=== PATIENT | female | born 1940 | race Caucasian/White ===

== ENCOUNTER → 2024-01-19 09:43 | Day surgery (SDC) | payer OTHER, SELFPAY ==
[2024-01-19 11:23] VITALS: BMI 22.3
[2024-01-19 11:52] LABS: INR 2.88; PT 30.6 Sec (11.4-14.6)
--- NOTE | 2024-01-19 12:08 | ITS.CL.CARDI ---
[employer] - Cardioversion
Cardioversion
Procedure Report:
Date of Procedure:
Procedure: Cardioversion
Indication: Symptomatic atrial flutter
Performing Physician: Salinas Augustin MD
Technique: The patient was brought to the holding area. Signed informed consent was obtained. A time out was called and performed. The patient was anesthetized by the anesthesia service. Anticoagulation status was reviewed and appropriate. R2 pads
were placed anteriorly and posteriorly. A 200 J synchronized biphasic shock restored normal sinus rhythm without significant bradycardia. There were no complications.
Conclusion: Uncomplicated cardioversion from atrial flutter to sinus rhythm.
Recommendation: Routine post cardioversion care. Continue fci anticoagulation.
== END ==
LOC: CATH 09:43
PROVIDERS: ATTENDING PHYSICIAN Internal Medicine Cardiovascular Disease; FAMILY PHYSICIAN Internal Medicine
DX: I48.92 Unspecified atrial flutter (principal); Z79.01 Long term (current) use of anticoagulants; I34.0 Nonrheumatic mitral (valve) insufficiency; I50.32 Chronic diastolic (congestive) heart failure; I11.0 Hypertensive heart disease with heart failure; D50.9 Iron deficiency anemia, unspecified; E87.1 Hypo-osmolality and hyponatremia; G40.909 Epilepsy, unspecified, not intractable, without status epilepticus
CPT/HCPCS: 85610; 92960; 93005

== ENCOUNTER → 2024-12-25 10:01 | Outpatient (REF) | payer OTHER, SELFPAY | LOC: HWRCS 10:01 | PROVIDERS: ATTENDING PHYSICIAN Thoracic Surgery (Cardiothoracic Vascular Surgery) | DX: Z98.890 Other specified postprocedural states (principal) | CPT/HCPCS: 93306 ==

== ENCOUNTER 2025-07-01 05:24 | Inpatient (IN) | payer OTHER, SELFPAY ==
[2025-07-01] VITALS (9 sets, daily range): BP systolic 153–195; BP diastolic 56–80
--- NOTE | 2025-07-01 02:47 | ED.GENMED ---
History of Present Illness
<Linda Omalley PA-C - Last Filed: 07/01/25 05:36>
General
Chief Complaint: Fall
Source: patient
Exam Limitations: none
Time Seen by Provider: 07/01/25 02:29
Nursing documentation reviewed up to this point in time: agreed with
History of Present Illness
History of Present Illness:
Note:
CHIEF COMPLAINT(S)
Lightheadedness and fall.
HISTORY OF PRESENT ILLNESS
The patient is a 85-year-old female with a history of open heart surgery for MVP repair, CAD, CHF, afib, presents to the ER today with concerns of left hip pain following a fall. She reports that the sensation of lightheadedness is not new and has
occurred intermittently over many years, describing it as 'normal' for her, especially when moving quickly or in certain positions. She felt lightheaded standing while walking to the bathroom, causing her to loose her balance leading to a fall on
her side, though she reports not hitting her head. The patient was unable to get up independently and an ambulance was called. She admits to feeling dry and dehydrated now.
She has a history of valve repair during open heart surgery and is on warfarin. She does not have a history of losing consciousness with these episodes. 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
symptoms. She denies associated liver pain, abdominal pain, shortness of breath, neck pain, ankle pain, knee pain. She denies any groin pain.
PAST MEDICAL AND SURGICAL HISTORY
- Open heart surgery with valve repair.
- History of hip replacement.
MEDICATIONS
- Warfarin.
- Aspirin.
REVIEW OF SYSTEMS
- Neurological: Lightheadedness, chronic in nature.
- Musculoskeletal: Recent fall, no report of immediate injury.
- Cardiovascular: History of valve repair, on anticoagulants.
- General: Reports feeling dry, indicating possible dehydration.
PHYSICAL EXAM
General: Alert, no acute distress.
Skin: Warm, dry.
Head: Normocephalic, atraumatic.
Neck: Supple, trachea midline.
Eye, Ears, Nose, Mouth and Throat: Oral mucosa moist.
Cardiovascular: Regular rate and rhythm, no murmur normal peripheral perfusion, No edema. No tenderness palpation of external chest wall, no, no signs of trauma.
Respiratory: No respiratory effort, no wheezes, rales, rhonchi. Respirations are non-labored.
Gastrointestinal: Abdomen nondistended. No tenderness to palpation
Back: Normal range of motion, Normal alignment. No midline spinal tenderness.
Musculoskeletal: Left hip externally rotate. Unable to range the left hip. Tenderness palpation of the left anterior hip. No tenderness about the left knee or left ankle. No visible bony deformity.
Neurological: Sensation intact. Cranial nerves II through XII intact. Alert and oriented to person, place, time, and situation, No focal neurological deficit observed.
Psychiatric: Cooperative, appropriate mood & affect.
PROBLEM LIST
Acute Problems:
- Lightheadedness
- Fall
Chronic Problems:
- History of open heart surgery with valve repair
- History of hip replacement
PLAN
- Obtain X-ray of hip and pelvis to rule out fracture.
- Obtain labs to assess potential causes of lightheadedness and to ensure no significant anemia or electrolyte imbalance.
- Initiate pain control with a small dose of morphine due to the patients anticoagulation status.
- Monitor hydration status and consider administering fluids.
- Consider additional cardiovascular evaluation to ensure stability due to history of valve surgery.
DIFFERENTIAL DIAGNOSIS
The Differential Diagnosis includes, in no particular order and is not limited to:
- Orthostatic hypotension
- Hip fracture
- Pelvic fracture
- Dehydration
- Vestibular dysfunction
- Anemia
- Cardiac arrhythmia
- Drug-induced dizziness (due to warfarin)
- Inner ear dysfunction
- Neurological event
- Syncope
- Post-prandial hypotension
ECG
Normal sinus rhythm, rate 63, no ischemic changes, unchanged from prior
LABS
Patient mildly anemic, improved from baseline
INR 2.32
Elevated BUN at 22
Mild transaminitis
CHART REVIEW
Reviewed cardioversion report from 01/19/2024
Reviewed discharge summary from 06/29/2022 patient seen for severe mitral valve regurg status post repair with neocordplasty
Reviewed catheter lab report from 05/26/2022 patient found to have no obstructive coronary disease but found to have mid LAD 40% stenosis and elevated right-sided and left-sided filling pressures with mild pulmonary hypertension and borderline low
cardiac output
MDM/disposition
85-year-old female presents the ER today with concerns of left hip pain following a fall. She reports that she was feeling lightheaded which caused her to feel off balance when she stood up from laying down. She did not lose consciousness or hit
her head. On physical exam, she is well-appearing in no acute distress. She is unable to move the left hip. She has tenderness to palpation anteriorly. No visible bony deformity. Left hip is externally rotated. X-ray reveals left femoral head
fracture. She has previously had a right hip replacement done with Dr. Gonzalez. Ortho on-call notified. Patient will require admission for further pain management and continued treatment. ED attending made aware. Patient referred for admission.
Past History
<Linda Omalley PA-C - Last Filed: 07/01/25 05:36>
Past History
ED Past Medical History: Arrthythmia, HTN and Other (siezure)
ED Past Surgical History: Gynecological, Orthopedic and Other (Hernia repair)
Social History
Tobacco: Non-smoker
Alcohol: None
Drug: None
Personal:
Living: with family
Phy Exam
<Linda Omalley PA-C - Last Filed: 07/01/25 05:36>
Physical Exam
Physical Exam:
see hpi
Course
<Linda Omalley PA-C - Last Filed: 07/01/25 05:36>
Orders/Labs/Results
Orders:
Orders
07/01/25 03:13
Electrocardiogram (*1) Urgent
Reason for Study: Vertigo / Dizzy
Morphine Sulfate 2 mg IV NOW STA
CR Hip - LT w/wo Pel 2-3 Vw* Urgent
Comment:
Reason For Exam: left anterior hip pain
Include a pelvis x-ray?: Yes
07/01/25 03:14
EKG- Treatment ONCE
07/01/25 03:23
Complete Blood Count/With Diff Urgent
Prothrombin Time Urgent
07/01/25 04:05
Comprehensive Metabolic Panel Urgent
Comment: REDRAW
07/01/25 04:19
Morphine Sulfate 4 mg IV NOW STA
Abnormal Lab Results
07/01/25 07/01/25
03:23 04:05
RBC 3.60 L 10^6/uL
(4.20-5.40)
Hgb 11.1 L g/dL
(12.0-16.0)
Hct 33.5 L %
(37.0-47.0)
Immature Gran % 0.6 H %
(0-0.5)
Lymphocytes % 18.5 L %
(20.5-51.1)
Monocytes % 9.5 H %
(1.7-9.3)
PT 25.5 H Sec
(11.4-14.6)
Carbon Dioxide 31 H mmol/L
(22-30)
BUN 22 H mg/dl
(7-17)
Glucose 116 H mg/dl
(70-99)
AST 60 H U/L
(14-36)
ALT 47 H U/L
(0-35)
Alkaline Phosphatase 144 H U/L
(38-126)
11/24/25 03:23
07/01/25 04:05
Vital Signs
Initial and Last Documented VS:
Initial Vital Signs
BP
195/78
07/01/25 02:24
Last Documented Vital Signs
Temp Pulse Resp BP Pulse Ox
98.3 F 64 15 182/70 99
07/01/25 02:28 07/01/25 04:45 07/01/25 04:45 07/01/25 03:00 07/01/25 04:45
<Joy Madera, DO - Last Filed: 07/01/25 04:39>
Orders/Labs/Results
Orders:
Orders
07/01/25 03:13
Electrocardiogram (*1) Urgent
Reason for Study: Vertigo / Dizzy
Morphine Sulfate 2 mg IV NOW STA
CR Hip - LT w/wo Pel 2-3 Vw* Urgent
Comment:
Reason For Exam: left anterior hip pain
Include a pelvis x-ray?: Yes
07/01/25 03:14
EKG- Treatment ONCE
07/01/25 03:23
Complete Blood Count/With Diff Urgent
Prothrombin Time Urgent
07/01/25 04:05
Comprehensive Metabolic Panel Urgent
Comment: REDRAW
07/01/25 04:19
Morphine Sulfate 4 mg IV NOW STA
Abnormal Lab Results
07/01/25 07/01/25
03:23 04:05
RBC 3.60 L 10^6/uL
(4.20-5.40)
Hgb 11.1 L g/dL
(12.0-16.0)
Hct 33.5 L %
(37.0-47.0)
Immature Gran % 0.6 H %
(0-0.5)
Lymphocytes % 18.5 L %
(20.5-51.1)
Monocytes % 9.5 H %
(1.7-9.3)
PT 25.5 H Sec
(11.4-14.6)
Carbon Dioxide 31 H mmol/L
(22-30)
BUN 22 H mg/dl
(7-17)
Glucose 116 H mg/dl
(70-99)
AST 60 H U/L
(14-36)
ALT 47 H U/L
(0-35)
Alkaline Phosphatase 144 H U/L
(38-126)
07/01/25 03:23
07/01/25 04:05
Vital Signs
Initial and Last Documented VS:
Initial Vital Signs
BP
195/78
07/01/25 02:24
Last Documented Vital Signs
Temp Pulse Resp BP Pulse Ox
98.3 F 64 15 182/70 99
07/01/25 02:28 07/01/25 04:45 07/01/25 04:45 07/01/25 03:00 07/01/25 04:45
<Linda Omalley PA-C - Last Filed: 07/01/25 05:36>
*Pulse Oximetry
SaO2: 92
Oxygen Mode of Delivery: Room air
Patient hypoxic: no
*Critical Care Note
Total Time (30-74mins, 75-104mins- exclusive of procedures): Not Applicable
ED Attending Note
<Linda Omalley PA-C - Last Filed: 07/01/25 05:36>
-
Portions of this chart may have been created with voice recognition software.� Occasional wrong word or��sound alike� substitutions may have occurred due to the inherent limitations of voice recognition software.
<Joy Madera DO - Last Filed: 07/01/25 04:39>
ED Attending Note
Patient seen and examined by attending physician: Yes
I performed a history and physical exam of patient and discussed management with resident, I reviewed resident's note and agree with documented findings and plan of care.: Yes
ED Attending Note:
This is a robinson 85-year-old woman who has history of PAF, mitral valve repair 2021, history of epilepsy as well as history of intermittent dizziness/lightheadedness most noted with standing. Due to history of PAF, chronically maintained on
Coumadin. Eliquis interferes with Dilantin and thus not an option. Tonight after getting up out of bed
She noted an element of lightheadedness/dizziness, lost her balance and fell. She presents with complaints of left hip pain.
She denies head injury nor loss of consciousness. She denies headache, no neck nor back pain. No weakness or numbness.
She has a prior history of right hip fracture repair.
85-year-old woman appears her stated age, bright and alert, pleasant, easily communicative and in no acute distress.
Exam notable for mild pain about the left hip. Significant pain about the left hip with attempted range of motion. Distal sensation, strength intact. Peripheral pulses are full and equal bilaterally.
No focal neurodeficits. Awake alert, oriented x 3. Has full recollection of events.
X-ray reveals basicervical left hip fracture.
Pain controlled with IV morphine.
INR therapeutic at 2.32.
Orthopedics has been notified. Awaiting acknowledgment.
Will admit to hospitalist service. To consider vitamin K but will await orthopedic and cardiology input.
Discharge Plan
Departure
Patient Disposition: Admit
Date of Disposition: 07/01/25
Time of Disposition: 04:13
Admit to: Med/Surg
Presentation/result/management discussed w/ accepting MD/DO: Hospitalist
Patient with high blood pressure during this ER visit?: Yes
Condition: Fair
Discharge Problem:
Closed fracture of neck of left femur, Episodic lightheadedness
Prescriptions:
No Action
phenobarbital 16.2 MG tablet
16.2 mg PO HS
phenytoin sodium extended [Dilantin Extended] 100 MG capsule
100 mg PO TID@0900,1800,2300
Patient Comments:
BRAND ONLY!
furosemide [Lasix] 40 mg tablet
40 mg PO BID
Vitamin D3 (with calcium carb) 200 mg (500 mg) -400 unit Tablet
500 tab PO DAILY
atorvastatin 40 mg tablet
40 mg PO QPM
thiamine HCl (vitamin B1) 100 mg tablet
100 mg PO DAILY
Rx Instructions:
Continue for 1 month and then stop
ascorbic acid (vitamin C) [Vitamin C] 500 mg tablet
500 mg PO DAILY
Rx Instructions:
Continue for 1 month and then stop
pantoprazole 40 mg tablet,delayed release (DR/EC)
40 mg PO DAILY
warfarin 5 mg tablet
6.5 mg PO DAILY
Patient Comments:
on hold per md
Rx Instructions:
Start on 06/29/22 at 6:00 PM. Goal INR 2.0-3.0
aspirin 81 mg tablet,chewable
81 mg PO DAILY
metoprolol tartrate 25 mg tablet
12.5 mg PO Q12
Referrals:
Nathaniel Sepulveda MD [Family Provider, Internal Medicine]
Discharge Date and Time
Print Language: KOSOVAN
[2025-07-01] MEDS: MORPHINE SULFATE 2 MG IV (03:24)
[2025-07-01 03:53] LABS: Hematocrit 33.5 % (37.0-47.0); Hemoglobin 11.1 g/dL (12.0-16.0); Mean Corp Hgb Conc. 33.1 g/dL (33.0-37.0); Mean Corpuscular Volume 93.1 fL (81.0-99.0); Nucleated Red Blood Cells % 0 %; Platelet Count 183 10^3/uL (130-400); Red Cell Dist. Width 12.7 % (11.5-14.5)
[2025-07-01 03:59] LABS: INR 2.32; PT 25.5 Sec (11.4-14.6)
--- NOTE | 2025-07-01 04:19 | HPS.HSE ---
Family Physician
-
Family Physician: Nathaniel Sepulveda
Chief Complaint
-
Fall
History of Present Illness
85-year-old female with past medical history significant for paroxysmal atrial fibrillation on anticoagulation with Coumadin, severe mitral regurgitation, status post mitral valve repair, hypertension, seizure disorder, history of CAD, pulmonary
hypertension, who presents to the emergency department following a fall from standing height.
Patient has a history of presyncopal episodes for many many years. She was standing today when she felt lightheaded and then fell. She denies striking her head. She did not lose consciousness entirely. She had no palpitations or chest pain.
After the fall she developed left-sided hip pain and was unable to ambulate.
In the emergency department she was afebrile she was hypertensive with a blood pressure of 180/70 and a pulse of 64 and she was satting 93% on room air. ECG shows a normal sinus rhythm rate of 73 with occasional PACs. No acute ST or T wave
changes. CBC was unremarked. INR was 2.3. Electrolytes BUN/creatinine pending.
Medical History
Past Medical History
Past Medical History: Reports Valvular Disease (Mitral regurgitation status post mitral and tricuspid valve repair (neochordplasty to P3 and a #32 mm annuloplasty band as well as tricuspid valve repair with a #30 mm annuloplasty band, bi-atrial Maze
using radiofrequency ablation and cryoablation plus left atrial appendage clip using a #40 mm )) and Other
Additional Past Medical History:
paroxysmal atrial fibrillation, seizure disorder, essential hypertension, anxiety
Past Surgical History: Reports Cardiac (Mitral valve repair) and Other
Social History
Tobacco: Non-smoker
Alcohol: None
Drug: None
Living: With Family
Family History
Family History: Not pertinent
Allergies / Home Medications
Allergies reflects when Allergies were last updated in [facility].
Home Medications with original date entered in [facility]
Allergy/Medication List:
Allergies
Allergy/AdvReac Type Severity Reaction Status Date / Time
azithromycin Allergy Unknown Verified 04/27/22 13:55
cefprozil [From Cefzil] Allergy Unknown Verified 04/27/22 13:55
Penicillins Allergy Unknown Verified 04/27/22 13:55
sulfamethoxazole Allergy Unknown Verified 04/27/22 13:55
[From Bactrim]
trimethoprim [From Bactrim] Allergy Unknown Verified 04/27/22 13:55
Home Medications
lisinopril 5 mg tablet 5 mg PO DAILY@2000 Blood pressure 03/16/17
phenobarbital 16.2 mg tablet 16.2 mg PO HS 03/16/17
phenytoin sodium extended 100 mg capsule (Dilantin Extended) 100 mg PO TID@0900,1800,2300 03/16/17
atenolol 100 mg tablet 100 mg PO HS 04/27/22
diazepam 2 mg tablet 2 mg PO HSPRN PRN sleep 04/27/22
nitrofurantoin monohydrate/macrocrystals 100 mg capsule 100 mg PO BID Infection 04/27/22
warfarin 5 mg tablet 5 mg PO SUMOWETHFRSA Blood clot prevention/tx 04/27/22
warfarin 5 mg tablet 7.5 mg PO TU Blood clot prevention/tx 04/27/22
Review of Systems
-
Constitutional: Reports No Symptoms
EENT: Reports No Symptoms
Respiratory: Reports No Symptoms
Cardiac: Reports No Symptoms
Abdomen/GI: Reports No Symptoms
: Reports No Symptoms
Musculoskeletal: Reports No Symptoms
Skin: Reports No Symptoms
Neurological: Reports No Symptoms
Endocrine: Reports No Symptoms
Hematologic/Lymphatic: Reports No Symptoms
Psych: Reports No Symptoms
Physical Exam
Vital Signs
Vital Signs
Temp Pulse Resp BP Pulse Ox
98.3 F 64 16 182/70 91
07/01/25 02:28 07/01/25 03:30 07/01/25 03:30 07/01/25 03:00 07/01/25 03:15
Physical Exam
General: Comfortable
HEENT: NormoCephalic, Moist mucous membranes and Atraumatic
Respiratory: Clear
Cardiac: S1/S2 and Regular Rhythm; No Murmur or Rub
GI: Soft, Non Tender, Non Distended and Normal Bowel Sounds; No Organomegaly
Rectal: Deferred by Provider
Genito-urinary: Deferred by me
Musculoskeletal: No Clubbing, No Cyanosis, No Edema and Other (Left leg externally rotated)
Skin: No Rash
Neuro: AO x 3 and Nonfocal/grossly intact
Hematologic/Lymphatic: No Lymphadenopathy
Psych: Calm
Laboratory Results
-
07/01/25 03:23
Laboratory Results
PT 25.5 Sec (11.4-14.6) H 07/01/25 03:23
INR 2.32 07/01/25 03:23
Total Bilirubin Cancelled 07/01/25 03:23
AST Cancelled 07/01/25 03:23
ALT Cancelled 07/01/25 03:23
Alkaline Phosphatase Cancelled 07/01/25 03:23
Data Reviewed
-
Diagnostic Radiology: Image Personally Visualized and interpreted
Medical Tests (Nuc Med, Echo, EKG etc): Image Personally Visualized and interpreted
Lab Data: Labs Reviewed by me
Old Records: Reviewed
Impression/Plan
-
IMPRESSION:
Patient is a 85-year-old female with past medical history significant for hypertension, hyperlipidemia, seizure disorder, atrial fibrillation on anticoagulation with Coumadin (patient is not on DOAC's due to interactions with antiepileptic drugs
phenytoin), history of mitral valve repair, hyperlipidemia, CKD presenting to the emergency department following episode of lightheadedness and fall without loss of consciousness and found to have a left femoral neck nondisplaced fracture.
PLAN:
Femoral fracture
- Admit to [facility]
- NPO for now, surgical timing is undetermined
-Pain control and antiemetics, tailored to patient's age and renal function.
- Urinary retention protocol
-PT consultation
-Consulted surgery and awaiting recommendations.
-Patient is pending a high risk bleeding procedure, recommend reversal w/ 2.5 mg of oral vitamin K now while holding Coumadin and follow repeat INR later today and in the morning
-Patient is at moderate risk for a low risk procedure with respect to cardiac outcomes. Screening ECG is nonischemic. Patient is not having any active cardiac issues. Benefit of surgery outweighs risk of cardiac outcome.
- family to contact is Devaughn Clemente regarding surgical plans
Seizure disorder -history of seizures has since 66 years ago and she has been chronically on Dilantin and phenobarbital. Her last seizure was in the remote past.
� Continue phenobarbital 16.2 mg at bedtime
� Continue Dilantin 100 mg 3 times daily,
Atrial fibrillation
- continue metoprolol
- holding coumadin
CHF - Euvolemic
- hold lasix 20mg while NPO
- check bnp
HTN
- continue her metoprolol
DVT PPX - holding coumadin for now
Code status - full code
[2025-07-01] MEDS: MORPHINE SULFATE 4 MG IV (04:23)
[2025-07-01 04:49] LABS: ALT (SGPT) 47 U/L (0-35); AST (SGOT) 60 U/L (14-36); Albumin 4.5 g/dl (3.5-5.0); Alkaline Phosphatase 144 U/L (38-126); Blood Urea Nitrogen 22 mg/dl (7-17); Calcium 9.2 mg/dl (8.4-10.2); Carbon Dioxide 31 mmol/L (22-30); Chloride 98 mmol/L (98-107); Estimated Creatinine Clearance 54 ml/min; Glucose 116 mg/dl (70-99); Potassium 4.1 mmol/L (3.5-5.1); Sodium 135 mmol/L (135-145); Total Protein 8.1 g/dl (6.3-8.2); eGFR > 60.00
--- NOTE | 2025-07-01 07:45 | CON.CAR ---
Addendum entered and electronically signed by Israel Mcgarry MD 07/01/25 12:02:
85-year-old woman admitted with left hip fracture following a fall associated with lightheadedness and dizziness. She can climb 2 flights of steps without difficulty.
PMH: Mitral valve repair, tricuspid valve repair, bilateral maze and left atrial appendage clip, PAF with history of cardioversions, seizure disorder,
Meds: Reviewed
Rest of history per [facility] as outlined below
179/80, pulse 69, respiratory rate 18, afebrile, frail, pleasant, external rotation left hip, head neck exam remarkable, lungs are clear, regular rate and rhythm without obvious murmurs JVD okay no carotid bruits abdomen benign extremities with
external rotation of left hip, neuro nonfocal
Hemoglobin 11.1, BUN and creatinine are 22 and 0.7 bicarb is 31, AST and ALT are 60 and 47
ECG sinus rhythm, PACs
Impression:
Intertrochanteric left hip fracture
History of mitral valve repair and tricuspid valve repair with bilateral maze and left atrial appendage clip
Paroxysmal atrial fibrillation maintained on warfarin
Seizure disorder
Other diagnoses as below per [facility]. Reviewed in detail and agreed, unless otherwise specified
Plan:
From a cardiac standpoint, she seems euvolemic and compensated, but atrial fibrillation or heart failure. She can proceed as planned with open reduction and internal fixation of left hip fracture at acceptable cardiac risk.Warfarin is currently on
hold, most recent INR is 2.32.
Other findings assessments and recommendations as below per [facility].
Original Note:
Consultation
Consultation Request
Date/Time Consultation Requested: 07/01/2025, 0640
Date/Time Consultation Performed: 07/01/2025, 0800
Requesting Provider: Dr. Giordano
Performing Provider: TATA Lunsford for Dr. Mcgarry
Reason for Consultation: preoperative cardiac risk assessment
Medical History
-
Chief Complaint: palpitations, LE edema
History of Present Illness:
Patient is an 85 yo F with PMH HTN, HLD, chronic heart failure preserved EF, mitral regurgitation s/p mitral valve repair, tricuspid valve repair, biatrial maze and GLORIA clip on 06/21/2022, atrial fibrillation status post multiple cardioversions last
January 2024 and has been in sinus rhythm since then (on warfarin, not on DOAC's due to interaction with antiepileptic drugs), seizure disorder, who presents to the ED 07/01/2025 after a fall. She had gotten up to go to the bathroom in the middle of
the night and was walking with her walker when she felt lightheaded and wobbly and fell. She had no loss of consciousness. She lives alone and has a medical alert bracelet which notified EMS and her family. She presented to the ED where she was
found to have left femoral neck nondisplaced fracture. She has been evaluated by orthopedic surgery and plan for surgery tomorrow as long as INR has drifted down to 1.5-1.6. INR was 2.32 on presentation 07/01 and warfarin on hold.
Patient reports she typically walks with a walker or cane. She will walk to the clubhouse at her facility and play cards or board games. She was able to walk up a flight of steps at her granddaughter's house yesterday. She has no chest pain or
shortness of breath. No palpitations or syncope. Does get positional lightheadedness and there has been consideration for adjusting medications due to this.
EKG: Normal sinus rhythm, nonspecific ST-T wave abnormality, PACs, QTc 458 ms
PMH:
Chronic HFpEF
atrial fibrillation, paroxysmal
s/p CAPRICE/CV 03/2022 w/ recurrent afib, sotalol loaded and repeat CV 04/2022
biatrial maze and GLORIA clip 06/21/2022 as part of MV and TV repair surgery
s/p CV 01/2024
Chronic OAC with warfarin
MR s/p MV repair, tricuspid valve repair, biatrial Maze and GLORIA clip 06/21/2022
HTN
HLD, diet controlled
Glaucoma
Seizure disorder�patient reports no seizure in 30 years
h/o UTIs
Sjogren's syndrome
Peripheral neuropathy
h/o positional vertigo
CAD, cath 05/2022 with nonobstructive CAD
Past Medical History
Past Medical History: Other (in HPI)
Past Surgical History: Gynecological (hysterectomy) and Other (Mitral valve repair, tricuspid valve repair, biatrial maze, GLORIA clip 06/21/2022)
Social History
Tobacco: Non-Smoker
Alcohol: None
Drug: None
Living: Alone
Employment: Retired
Family History
Family History: CAD, Cancer, Diabetes and Hypertension
Allergies / Home Medications
Allergy/AdvReac Type Severity Reaction Status Date / Time
azithromycin Allergy Unknown Verified 07/01/25 02:27
cefprozil (From Cefzil) Allergy FACIAL Verified 07/01/25 02:27
SWELLING
ciprofloxacin (From Cipro) Allergy Swelling Verified 07/01/25 02:27
Penicillins Allergy Swelling Verified 07/01/25 02:27
sulfamethoxazole (From Allergy FACIAL Verified 07/01/25 02:27
Bactrim) SWELLING
trimethoprim (From Bactrim) Allergy Unknown Verified 07/01/25 02:27
�Medication �Instructions �Recorded �Confirmed �Type
phenobarbital 16.2 mg tablet 16.2 mg PO HS Seizures 03/16/17 01/19/24 History
phenytoin sodium extended 100 mg 100 mg PO TID@0900,1800,2300 03/16/17 01/19/24 History
capsule (Dilantin Extended) Seizures
furosemide 40 mg tablet (Lasix) 40 mg PO BID Fluid 06/19/22 01/19/24 History
retention/Swelling
ascorbic acid (vitamin C) 500 mg 500 mg PO DAILY Supplement 01/19/24 01/19/24 History
tablet (Vitamin C)
aspirin 81 mg chewable tablet 81 mg PO DAILY blood thinner 01/19/24 01/19/24 History
atorvastatin 40 mg tablet 40 mg PO QPM cholesterol 01/19/24 01/19/24 History
calcium carbonate 200 mg calcium 500 tab PO DAILY Supplement 01/19/24 01/19/24 History
(500 mg)-vitamin D3 400 unit tablet
metoprolol tartrate 25 mg tablet 12.5 mg PO Q12 bp 01/19/24 01/19/24 History
pantoprazole 40 mg tablet,delayed 40 mg PO DAILY gi 01/19/24 01/19/24 History
release
thiamine HCl (vitamin B1) 100 mg 100 mg PO DAILY Supplement 01/19/24 01/19/24 History
tablet
warfarin 5 mg tablet 6.5 mg PO DAILY Blood clot 01/19/24 01/19/24 History
prevention/tx
Review of Systems
-
History Source: Patient
All other systems: Negative unless noted
Physical Exam
Vital Signs
Temp Pulse Resp BP Pulse Ox
98.3 F 67 12 167/61 100
07/01/25 02:28 07/01/25 07:15 07/01/25 07:15 07/01/25 07:00 07/01/25 07:15
Lab Results
07/01/25 03:23
07/01/25 04:05
GEN: No distress, awake, Ox3
HEENT: supple, anicteric, mmm
LUNGS: CTA, no wheezes/rales
CV: Reg, S1/S2, no murmur
ABD: soft, BS+, NT/ND
EXT: No edema
NEURO: Gross non-focal
SKIN: No rash
Impression / Plan
-
PCP: Dr. Nathaniel Sepulveda
Cardiology: Dr. Augustin
Impression:
Left femoral neck nondisplaced fracture
Paroxysmal atrial fibrillation
Positional lightheadedness
Chronic heart failure preserved EF
Status post mitral valve repair, tricuspid valve repair 06/2022
Chronic OAC with warfarin
HTN
HLD, diet controlled
Glaucoma
Seizure disorder
h/o UTIs
Sjogren's syndrome
Peripheral neuropathy
h/o positional vertigo
Echo 02/23/22: Mod to sev LA enlargement, low normal LV systolic function, MVP with at least mod MR, mild to mod TR
Echo 08/2023: LVEF 55 to 60%, mitral valve repair with peak/mean 7/3 mmHg, trace MR, tricuspid valve repair with trace TR, mean gradient 2 mmHg, PAP 22 mmHg
Echo 12/2024: EF 55 to 60%, status post mitral repair with mean gradient 2, mild MR, status post tricuspid valve repair with mean gradient 1 and trace TR, PA pressure 25 mmHg
Left heart cath/right heart cath 05/26/2022, left main: Luminal irregularities. LAD: 40% mid LAD stenosis. Ostial D1 80% stenosis small caliber vessel, EVIE-3 flow. Distal to apical LAD with 70% stenosis and small in caliber. Ramus, left
circumflex, and RCA with luminal irregularities.
Plan:
- 85-year-old female with HTN, HLD, chronic heart failure preserved EF, mitral regurgitation s/p mitral valve repair, tricuspid valve repair, biatrial maze and GLORIA clip on 06/21/2022, atrial fibrillation status post multiple cardioversions last January
2023 and has been in sinus rhythm since then (on warfarin, not on DOAC's due to interaction with antiepileptic drugs), seizure disorder, who presents to the ED 07/01/2025 after a fall in setting of positional lightheadedness after she got up to walk
to the bathroom in the middle of the night. She presented to the ED where she was found to have left femoral neck nondisplaced fracture. She has been evaluated by orthopedic surgery and plan for surgery tomorrow as long as INR has drifted down to
1.5-1.6. INR was 2.32 on presentation 07/01 and warfarin on hold.
-Echo 12/2024 with normal LV function and stable mitral and tricuspid valve status post repair in 2021
-No anginal symptoms at stable functional capacity
-EKG normal sinus rhythm with no ischemic changes
-Blood pressure currently elevated, could be due to pain
- Warfarin on hold, anticipate surgery once INR less than 1.5-1.6 per Ortho. Of note she is on warfarin rather than a DOAC due to interaction of seizure meds with DOAC's.
-On warfarin for history of paroxysmal atrial fibrillation, no known A-fib since January 2024. Does not need bridge therapy.
-She has history of heart failure preserved EF, Lasix on hold while n.p.o., she appears euvolemic on exam.
discussed with nursing
Data Reviewed
-
EKG: Tracing Personally Visualized and interpreted
Labs: Labs Reviewed by me
Old Records: Reviewed
--- NOTE | 2025-07-01 08:25 | CON.ORTHO ---
Addendum entered and electronically signed by Yobani Roger MD 07/01/25 18:36:
Patient seen and examined. Agree with below. INR this AM was 2.32. Patient tentatively scheduled for left hip hemiarthroplasty tomorrow pending INR. Indicated at 6:30 AM that reversal with vitamin K should start to be able to address hip
fracture sooner than later. Unsure if vitamin K reversal has been ordered. Nothing found in the chart. Have tiger texted medical providers involved with care to attempt to begin reversal. New INR sent to lab. Will follow. Discussed with the
patient and her son. Consent obtained for surgery when able.
Original Note:
Consultation
-
Date/Time Consultation Requested: Jul 02
Date/Time Consultation Performed: Jul 02
Requesting Provider: Juan
Performing Provider: Gm Roger
Reason for Consultation: LEFT hip fracture
Consultation - Orthopedics
History
History of Present Illness:
85-year-old female with PMH significant for paroxysmal atrial fibrillation on Coumadin (INR 2.88 in ER, down to 2.32 early this AM, repeat AM draw pending), severe mitral regurgitation, status post mitral valve repair, hypertension, seizure
disorder, history of CAD, pulmonary hypertension, who presents to the emergency department following a fall from standing height. Patient has a history of presyncopal episodes for many many years. She was standing today when she felt lightheaded
and then fell. She denies striking her head. She did not lose consciousness entirely. She had no palpitations or chest pain. After the fall she developed left-sided hip pain and was unable to ambulate. Xrays in the ED at [facility] reveal a left
femoral neck fracture therefore we will requested in consultation. she will be admitted to the hospitalist service. Dr. Giordano has also requested cardiology consult. She denies any previous issues or injuries to the left hip.
Past Medical History:
Valvular Disease (Mitral regurgitation status post mitral and tricuspid valve)
PAF on Coumadin
seizure disorder
essential hypertension
anxiety
Past Surgical History:
Mitral valve repair
Right hip hemiarthroplasty (2016)
Social History:
Tobacco: Non-smoker
Alcohol: None
Drug: None
Living: With Family
Family History:
Family History: Not pertinent
ROS:
12 point negative except for those mentioned in the HPI
Allergies / Home Medications
Allergy/AdvReac Type Severity Reaction Status Date / Time
azithromycin Allergy Unknown Verified 07/01/25 02:27
cefprozil (From Cefzil) Allergy FACIAL Verified 07/01/25 02:27
SWELLING
ciprofloxacin (From Cipro) Allergy Swelling Verified 07/01/25 02:27
Penicillins Allergy Swelling Verified 07/01/25 02:27
sulfamethoxazole (From Allergy FACIAL Verified 07/01/25 02:27
Bactrim) SWELLING
trimethoprim (From Bactrim) Allergy Unknown Verified 07/01/25 02:27
�Medication �Instructions �Recorded
phenobarbital 16.2 mg tablet 16.2 mg PO HS Seizures 03/16/17
phenytoin sodium extended 100 mg 100 mg PO TID@0900,1800,2300 03/16/17
capsule (Dilantin Extended) Seizures
furosemide 40 mg tablet (Lasix) 40 mg PO BID Fluid 06/19/22
retention/Swelling
ascorbic acid (vitamin C) 500 mg 500 mg PO DAILY Supplement 01/19/24
tablet (Vitamin C)
aspirin 81 mg chewable tablet 81 mg PO DAILY blood thinner 01/19/24
atorvastatin 40 mg tablet 40 mg PO QPM cholesterol 01/19/24
calcium carbonate 200 mg calcium 500 tab PO DAILY Supplement 01/19/24
(500 mg)-vitamin D3 400 unit tablet
metoprolol tartrate 25 mg tablet 12.5 mg PO Q12 bp 01/19/24
pantoprazole 40 mg tablet,delayed 40 mg PO DAILY gi 01/19/24
release
thiamine HCl (vitamin B1) 100 mg 100 mg PO DAILY Supplement 01/19/24
tablet
warfarin 5 mg tablet 6.5 mg PO DAILY Blood clot 01/19/24
prevention/tx
Vital Signs / Lab Results
Temp Pulse Resp BP Pulse Ox
99.6 F 69 18 179/80 91
07/01/25 07:50 07/01/25 07:50 07/01/25 07:50 07/01/25 07:50 07/01/25 07:50
07/01/25 03:23
07/01/25 04:05
Assessment / Plan
PE: Bedrest. LEFT hip skin intact. LLE slight short and ER. Generalized pain about the left hip. Some swelling noted. + logroll LLE. Deferred ROM due to known fracture. Knee nontender. Calf soft, nontender. DNVI LLE
Xrays: LEFT femoral neck fracture
Impression: TAYO
Plan:
at length bedside discussion with the patient yields her understanding to the nature of her left hip fracture and our proposed treatment recommendations. All nonoperative and operative management were discussed including the RBAs of each approach.
After accepting all the proposed risks of proceeding with surgery she has elected that option. She has been through hip fracture repair in the past, back in 2017, and did well. We briefly discussed the postop and rehab course, and will appreciate
CM with disposition. she understands there will be a period of time where we will recommend THPs (typically 6 weeks). Appreciate attending hospitalist, Dr. Giordano. Cardiology consult has also been placed. We will look to proceed, tentatively,
tomorrow with a LEFT hip hemiarthroplasty as surgeon and OR availability permits. surgical and blood consents have been signed. Operative site is been marked as the LEFT hip. She has been tentatively consented for Dr. Roger. She may have a diet
today with no planned surgery. INR still high at 2.32. Repeat coagulation studies pending. Appears as though there is a gentle reversal. To proceed with regional anesthesia we would like her INR around 1.5/1.6 typically, per anesthesia. orders
have been placed for tentative surgery tomorrow, including NPO and T&S. Orthopedic surgery to follow along for now
[2025-07-01] MEDS: DILANTIN 100 MG PO ×3 (08:38→22:49)
[2025-07-01] MEDS: LOPRESSOR 25 MG PO ×2 (08:39→19:32)
[2025-07-01] MEDS: TYLENOL 650 MG PO ×4 (08:39→19:32)
[2025-07-01] MEDS: PROTONIX IV 40 MG IV (08:40)
[2025-07-01] MEDS: NSS (PRESERVATIVE FREE) 10 ML IV (08:40)
[2025-07-01] MEDS: DILAUDID 0.25 MG IV ×3 (08:40→22:49)
--- NOTE | 2025-07-01 09:21 | W.PN.HOSP.TC ---
Today's Communication/Plan
-
.
Assessment / Plan
Assessment / Plan
Physical Exam
General: not in respiratory distress
HEENT: Normocephalic, atraumatic
Respiratory: Clear
Cardiac: S1/S2
GI: Soft, Non Tender, Non Distended and Normal Bowel Sounds
Musculoskeletal: No Clubbing, No Cyanosis, No Edema and Other (Left leg externally rotated)
Skin: No Rash
Neuro: AO x 3 and Nonfocal/grossly intact
Psych: Calm
# Left femoral neck fracture
c/w pain control
d/w ortho, will plan for surgery when INR is down
Likely 07/02
# Pre- op evaluation
No chest pain
She newell snot seem in CHF on exam
c/w BB
Primary program support assistant Dr Hyde
# S/ P mitral regurgitation s/p mitral valve repair, tricuspid valve repair, biatrial maze and GLORIA clip on 06/21/2022
# Mild elevation in LFT
Monitor
No abd pain
# chronic heart failure preserved EF
# Seizure disorder -history of seizures has since 66 years ago and she has been chronically on Dilantin and phenobarbital. Her last seizure was in the remote past.
� Continue phenobarbital 16.2 mg at bedtime
� Continue Dilantin 100 mg 3 times daily,
# Paroxysmal atrial fibrillation
- continue metoprolol
- holding Coumadin
# positional vertigo
# Sjogren's syndrome with Peripheral neuropathy
HTN
- continue her metoprolol
DVT PPX - holding coumadin for now
Code status - full code
Total time spent to see the patient, examine the patient, review data and lab results, discuss treatment plan with patient, nursing staff around 55 minutes�
Anticipated Discharge: > 48 hours
Subjective/Interval History
-
Date of Service: July 01, 2025
She complains of discomfort in hip area.
Objective Data
-
Labs:
Laboratory Results
07/01/25 07/01/25 07/01/25
03:23 04:05 18:00
WBC 6.2
Hgb 11.1 L
Hct 33.5 L
Plt Count 183
PT 25.5 H Pending
INR 2.32 Pending
Sodium Cancelled 135
Potassium Cancelled 4.1
Chloride Cancelled 98
Carbon Dioxide Cancelled 31 H
BUN Cancelled 22 H
Creatinine Cancelled 0.7
Glucose Cancelled 116 H
Calcium Cancelled 9.2
Total Bilirubin Cancelled 0.3
AST Cancelled 60 H
ALT Cancelled 47 H
Alkaline Phosphatase Cancelled 144 H
Vital Signs:
Vital Signs
Temp Pulse Resp BP Pulse Ox
99.6 F 69 18 179/80 91
07/01/25 07:50 07/01/25 07:50 07/01/25 07:50 07/01/25 07:50 07/01/25 07:50
--- NOTE | 2025-07-01 11:32 | CM ---
CM met with pt bedside
Pt resides alone in a rancher with 1 +threshold through front and 1STE with handrail through garage
Pt is independent with her ADLs with use of a WW, independent with household tasks
Pt does not drives, family assists with transport and errands
Pt has a shower chair and grabs bars
Pt has hx at [facility] and [facility]
PCP- Nathaniel Sepulveda
Rx- CAROLE Wade
Pt has strong family support
Pt has 5 children (Devaughn, Maria Isabel, and Marcos in [place], Israel/Dillon [place], Gil/JIGNA [place])
Pt has 18 grandchildren mostly local and 18 great-grandchildren
Pt planned for OR tomorrow for L. ernie hip
PAC provided and referrasl sent to 1). [facility]). [facility] and 3). [facility]
Pt will require auth for SNF and will benefit from postop PT/OT evals
Call to son/Devaughn with pt permission to introduce self and explain role
Discharge Disposition- anticipate SNF pending auth
[2025-07-01] MEDS: D5/0.9% SODIUM CHLORIDE 1000 IV (11:50)
[2025-07-01 19:19] LABS: INR 2.52; PT 27.2 Sec (11.4-14.6)
[2025-07-01] MEDS: AQUAMEPHYTON 50.5 MG IV (19:31)
[2025-07-01] MEDS: COLACE 100 MG PO (19:32)
[2025-07-01] MEDS: SENOKOT 17.2 MG PO (19:32)
[2025-07-01] MEDS: LUMINAL 16.2 MG PO (22:48)
[2025-07-02] VITALS (12 sets, daily range): BP systolic 122–165; BP diastolic 52–75; BMI 19.8
[2025-07-02] MEDS: TYLENOL PO ×4 (00:29→16:31)
[2025-07-02 07:23] LABS: Hematocrit 36.1 % (37.0-47.0); Hemoglobin 12.3 g/dL (12.0-16.0); Mean Corp Hgb Conc. 34.1 g/dL (33.0-37.0); Mean Corpuscular Volume 93.3 fL (81.0-99.0); Platelet Count 166 10^3/uL (130-400); Red Cell Dist. Width 12.6 % (11.5-14.5)
[2025-07-02 07:30] LABS: INR 1.26; PT 16.0 Sec (11.4-14.6)
--- NOTE | 2025-07-02 07:50 | W.PN.UPDATE ---
Update Note
Progress Note Update
85F left femoral neck fracture
- Pending OR for left hip hemiarthroplasty with Dr. Roger with goal INR less than 1.5; current INR with reversal 1.26 this a.m.
- Type and screen on file. Antibiotics on-call to or. Irrigation is ordered.
- Consent on file
- Plan 4 OR today for left hip hemiarthroplasty with Dr. Roger
[2025-07-02 08:16] LABS: Blood Urea Nitrogen 14 mg/dl (7-17); Calcium 9.2 mg/dl (8.4-10.2); Carbon Dioxide 28 mmol/L (22-30); Chloride 100 mmol/L (98-107); Estimated Creatinine Clearance 60 ml/min; Glucose 120 mg/dl (70-99); Potassium 4.0 mmol/L (3.5-5.1); Sodium 132 mmol/L (135-145); eGFR > 60.00
[2025-07-02] MEDS: PROTONIX IV 40 MG IV (08:24)
[2025-07-02] MEDS: NSS (PRESERVATIVE FREE) 10 ML IV (08:24)
[2025-07-02] MEDS: LOPRESSOR 25 MG PO ×2 (08:26→20:10)
[2025-07-02] MEDS: TYLENOL 650 MG PO ×3 (08:29→23:00)
[2025-07-02] MEDS: SENOKOT PO (08:30)
[2025-07-02] MEDS: COLACE PO (08:30)
[2025-07-02] MEDS: DILANTIN 100 MG PO (08:43)
--- NOTE | 2025-07-02 09:00 | PTCARENOTE ---
order noted for Dilantin (name broad only) PO TID. call placed to Pharmacy-medication non-formulary in name brand. pt made aware.
pt agreeable to take generic -Phenytoin- this am and ask family to provide home medication for further administrations. Phenytoin provided per OCT.
--- NOTE | 2025-07-02 09:50 | W.PN.CARDCBS ---
Today's Communication / Plan
-
Stable for operating room. Place on telemetry.
Follow for hx of Paroxysmal A-fib. Will continue metoprolol 25 p.o. every 12.
Will need to watch for orthostasis postoperatively.
INR below 1.5. Resume Coumadin post surgery.
Impression / Plan
-
PCP: Dr. Nathaniel Sepulveda
Cardiology: Dr. Augustin
Impression:
Left femoral neck nondisplaced fracture
Paroxysmal atrial fibrillation
Positional lightheadedness
Chronic heart failure preserved EF
Status post mitral valve repair, tricuspid valve repair 06/2022
Chronic OAC with warfarin
HTN
HLD, diet controlled
Glaucoma
Seizure disorder
h/o UTIs
Sjogren's syndrome
Peripheral neuropathy
h/o positional vertigo
Echo 02/23/22: Mod to sev LA enlargement, low normal LV systolic function, MVP with at least mod MR, mild to mod TR
Echo 08/2023: LVEF 55 to 60%, mitral valve repair with peak/mean 7/3 mmHg, trace MR, tricuspid valve repair with trace TR, mean gradient 2 mmHg, PAP 22 mmHg
Echo 12/2024: EF 55 to 60%, status post mitral repair with mean gradient 2, mild MR, status post tricuspid valve repair with mean gradient 1 and trace TR, PA pressure 25 mmHg
Left heart cath/right heart cath 05/26/2022, left main: Luminal irregularities. LAD: 40% mid LAD stenosis. Ostial D1 80% stenosis small caliber vessel, EVIE-3 flow. Distal to apical LAD with 70% stenosis and small in caliber. Ramus, left
circumflex, and RCA with luminal irregularities.
Plan:
- 85-year-old female with HTN, HLD, chronic heart failure preserved EF, mitral regurgitation s/p mitral valve repair, tricuspid valve repair, biatrial maze and GLORIA clip on 06/21/2022, atrial fibrillation status post multiple cardioversions last January
2023 and has been in sinus rhythm since then (on warfarin, not on DOAC's due to interaction with antiepileptic drugs), seizure disorder, who presents to the ED 07/01/2025 after a fall in setting of positional lightheadedness after she got up to walk
to the bathroom in the middle of the night. She presented to the ED where she was found to have left femoral neck nondisplaced fracture. She has been evaluated by orthopedic surgery and plan for surgery tomorrow as long as INR has drifted down to
1.5-1.6. INR was 2.32 on presentation 07/01 and warfarin on hold.
-Echo 12/2024 with normal LV function and stable mitral and tricuspid valve status post repair in 2021
-No anginal symptoms at stable functional capacity
-EKG normal sinus rhythm with no ischemic changes
-INR currently at 1.26. Okay for operating room today. Placed on telemetry pre and postoperatively to follow for A-fib.
-On warfarin for history of paroxysmal atrial fibrillation, no known A-fib since January 2024. Does not need bridge therapy.
-She has history of heart failure preserved EF, Lasix on hold while n.p.o., she appears euvolemic on exam.
- She did have some dizziness prior to her fall. Will need to watch for orthostasis postoperatively.
discussed with nursing
Progress Note - Perianesthesia Manager
Subjective
Date of Service: July 02, 2025
She denies chest pains or shortness of breath. No further dizziness.
Objective
Labs:
07/02/25 06:18
07/02/25 06:18
Labs
Hgb 12.3 g/dL (12.0-16.0) 07/02/25 06:18
Hct 36.1 % (37.0-47.0) L 07/02/25 06:18
Plt Count 166 10^3/uL (130-400) 07/02/25 06:18
PT 16.0 Sec (11.4-14.6) H 07/02/25 06:18
INR 1.26 07/02/25 06:18
Sodium 132 mmol/L (135-145) L 07/02/25 06:18
Potassium 4.0 mmol/L (3.5-5.1) 07/02/25 06:18
BUN 14 mg/dl (7-17) 07/02/25 06:18
Creatinine 0.6 mg/dL (0.6-1.0) 07/02/25 06:18
Glucose 120 mg/dl (70-99) H 07/02/25 06:18
Vital Signs and I&O:
Vital Signs
Temp Pulse Resp BP Pulse Ox
98.9 F 73 14 165/74 95
07/02/25 08:05 07/02/25 08:26 07/02/25 08:05 07/02/25 08:26 07/02/25 08:05
Vital Signs
Temp Pulse Resp BP Pulse Ox
98.9 F 73 14 165/74 95
07/02/25 08:05 07/02/25 08:26 07/02/25 08:05 07/02/25 08:26 07/02/25 08:05
Intake & Output
06/30/25 07/01/25 07/02/25 07/03/25
06:59 06:59 06:59 06:59
Intake Total 1450.5 / 1450.5
Output Total 650 / 650
Balance 800.5 / 800.5
Physical Exam
Physical Exam
GEN: No distress, awake, Ox3
HEENT: supple, anicteric, mmm
LUNGS: CTA, no wheezes/rales
CV: Reg, S1/S2, 1/6 syst LSB, no gallop
ABD: soft, BS+, NT/ND
EXT: No edema
NEURO: Gross non-focal
SKIN: No rash
--- NOTE | 2025-07-02 09:55 | W.PN.HOSP.TC ---
Today's Communication/Plan
-
surgery today
Assessment / Plan
Assessment / Plan
Physical Exam
General: not in respiratory distress
HEENT: Normocephalic, atraumatic
Respiratory: Clear
Cardiac: S1/S2
GI: Soft, Non Tender, Non Distended and Normal Bowel Sounds
Musculoskeletal: No Clubbing, No Cyanosis, No Edema and Other (Left leg externally rotated)
Skin: No Rash
Neuro: AO x 3 and Nonfocal/grossly intact
Psych: Calm
# Left femoral neck fracture
c/w pain control
d/w ortho, will plan for surgery 07/02
# Hyponatremia, mild
No confusion
# Pre- op evaluation
No chest pain
She newell snot seem in CHF on exam
c/w BB
Primary pharmacist in charge Dr Augustin
# S/ P mitral regurgitation s/p mitral valve repair, tricuspid valve repair, biatrial maze and GLORIA clip on 06/21/2022
# Mild elevation in LFT
Monitor
No abd pain
# chronic heart failure preserved EF
# Seizure disorder -history of seizures has since 66 years ago and she has been chronically on Dilantin and phenobarbital. Her last seizure was in the remote past.
� Continue phenobarbital 16.2 mg at bedtime
� Continue Dilantin 100 mg 3 times daily,
# Paroxysmal atrial fibrillation
- continue metoprolol
- holding Coumadin
s/p vitamin K for OR, d/w ortho, need INR less than 2
# positional vertigo
# Sjogren's syndrome with Peripheral neuropathy
HTN
- continue her metoprolol
DVT PPX - holding coumadin for now
Code status - full code
Total time spent to see the patient, examine the patient, review data and lab results, discuss treatment plan with patient, nursing staff around 55 minutes�
Anticipated Discharge: 24 - 48 hours
Subjective/Interval History
-
Date of Service: July 02, 2025
No chest pain
No sob
Objective Data
-
Labs:
Laboratory Results
07/02/25
06:18
WBC 10.1
Hgb 12.3
Hct 36.1 L
Plt Count 166
PT 16.0 H
INR 1.26
Sodium 132 L
Potassium 4.0
Chloride 100
Carbon Dioxide 28
BUN 14
Creatinine 0.6
Glucose 120 H
Calcium 9.2
Vital Signs:
Vital Signs
Temp Pulse Resp BP Pulse Ox
98.9 F 73 14 165/74 95
07/02/25 08:05 07/02/25 08:26 07/02/25 08:05 07/02/25 08:26 07/02/25 08:05
I&O
07/01/25 07/02/25 07/03/25
06:59 06:59 06:59
Intake Total 1450.5 / 1450.5
Output Total 650 / 650
Balance 800.5 / 800.5
[2025-07-02] MEDS: D5/0.9% SODIUM CHLORIDE IV (15:57)
--- NOTE | 2025-07-02 15:59 | PTCARENOTE ---
pt received back to 2117 from PACU @ 1550. drowsy but easily arousable. telemetry placed and reading SR in 60's. pt oriented to room, call ramirez and plan of care with verbalized understanding. family at bedside. Left Hip surgical dressing clean
and dry. pr denies pain. care ongoing.
--- NOTE | 2025-07-02 16:24 | PTCARENOTE ---
pt's own Dilantin sent to pharmacy for ID and bar code for administration.
[2025-07-02] MEDS: NON-FORMULARY ITEM 1 UNIT PO ×2 (18:24→22:55)
[2025-07-02] MEDS: REFRESH EYE DROPS (PF) 1 DROPS OPHTH (18:25)
[2025-07-02] MEDS: ANCEF 5 IV (20:10)
[2025-07-02] MEDS: COLACE 100 MG PO (20:10)
[2025-07-02] MEDS: SENOKOT 17.2 MG PO (20:10)
[2025-07-02] MEDS: LUMINAL 16.2 MG PO (22:38)
[2025-07-03] VITALS (7 sets, daily range): BP systolic 127–166; BP diastolic 53–66; PULSE 79–80; O2SAT 94; BMI 19.5
[2025-07-03] MEDS: REFRESH EYE DROPS (PF) 1 DROPS OPHTH ×2 (00:25→06:24)
[2025-07-03] MEDS: TYLENOL 650 MG PO ×2 (04:15→09:16)
[2025-07-03] MEDS: ANCEF 5 IV (04:15)
[2025-07-03] MEDS: ROXICODONE 5 MG PO ×2 (06:14→18:33)
[2025-07-03 07:12] LABS: Hematocrit 30.0 % (37.0-47.0); Hemoglobin 10.3 g/dL (12.0-16.0); Mean Corp Hgb Conc. 34.3 g/dL (33.0-37.0); Mean Corpuscular Volume 92.9 fL (81.0-99.0); Platelet Count 127 10^3/uL (130-400); Red Cell Dist. Width 12.6 % (11.5-14.5)
[2025-07-03 07:27] LABS: ALT (SGPT) 23 U/L (0-35); AST (SGOT) 37 U/L (14-36); Albumin 3.4 g/dl (3.5-5.0); Alkaline Phosphatase 93 U/L (38-126); Blood Urea Nitrogen 15 mg/dl (7-17); Calcium 8.5 mg/dl (8.4-10.2); Carbon Dioxide 27 mmol/L (22-30); Chloride 98 mmol/L (98-107); Estimated Creatinine Clearance 44 ml/min; Glucose 126 mg/dl (70-99); Potassium 3.8 mmol/L (3.5-5.1); Sodium 130 mmol/L (135-145); Total Protein 6.3 g/dl (6.3-8.2); eGFR > 60.00
--- NOTE | 2025-07-03 07:29 | W.PN.ORTHO ---
Today's Communication / Plan
-
85 yo F POD1 left hip hemiarthroplasty under the direction of Dr. Roger
--WBAT to LLE with walker. Anterolateral hip precautions. We appreciate the assistance of PT/OT.
--Warfarin for DVT ppx, to be managed per primary.
--Hgb 10.3. Continue to monitor.
--Pain control prn. Ice and elevation for edema control.
--Maintain surgical dressing for 7-10 days post-op. Staple removal at 2 weeks post-op.
--Case management consult for dc planning.
--Orthopedics will continue to follow along.
Assessment
.
Distal Motor Intact: Yes
Dressing:
Clean, dry and intact.
Plan
.
Surgery / Date: L hip ernie, [place], 07/02/2025
DVT Prophylaxis: Coumadin
Activity:
Out of bed.
PT/OT
Subjective
.
.:
Ms. East is POD1 following her left hip hemiarthroplasty performed by Dr. Roger. She does endorse some continued pain about the hip. She reports it was somewhat difficult to get up to use the restroom overnight. She is resting comfortably in bed
this morning.
Vital Signs and Labs
.
Vital Signs and Labs:
Lab Results
07/03/25 06:32
07/03/25 06:32
Temp Pulse Resp BP Pulse Ox
99.3 F 73 17 137/59 93
07/03/25 03:21 07/03/25 03:21 07/03/25 03:21 07/03/25 03:21 07/03/25 03:21
PT 16.0 Sec (11.4-14.6) H 07/02/25 06:18
INR 1.26 07/02/25 06:18
Physical Exam
-
Directed exam of the left lower extremity reveals surgical dressing clean, dry and intact. Mild tenderness about the anterior hip. Thigh soft and compressible. Calf soft and nontender. Patient able to wiggle toes, plantar and dorsiflex ankle.
Neurovascularly intact distally.
--- NOTE | 2025-07-03 09:13 | W.PN.CARDCBS ---
Today's Communication / Plan
-
Stable cardiac status
Restart atorvastatin, furosemide, potassium
Agree with initiation of warfarin
We will sign off, please call if questions
Impression / Plan
-
PCP: Dr. Nathaniel Sepulveda
Cardiology: Dr. Augustin
Impression:
Left femoral neck nondisplaced fracture
Paroxysmal atrial fibrillation
Positional lightheadedness
Chronic heart failure preserved EF
Status post mitral valve repair, tricuspid valve repair 06/2022
Chronic OAC with warfarin
HTN
HLD, diet controlled
Glaucoma
Seizure disorder
h/o UTIs
Sjogren's syndrome
Peripheral neuropathy
h/o positional vertigo
Echo 02/23/22: Mod to sev LA enlargement, low normal LV systolic function, MVP with at least mod MR, mild to mod TR
Echo 08/2023: LVEF 55 to 60%, mitral valve repair with peak/mean 7/3 mmHg, trace MR, tricuspid valve repair with trace TR, mean gradient 2 mmHg, PAP 22 mmHg
Echo 12/2024: EF 55 to 60%, status post mitral repair with mean gradient 2, mild MR, status post tricuspid valve repair with mean gradient 1 and trace TR, PA pressure 25 mmHg
Left heart cath/right heart cath 05/26/2022, left main: Luminal irregularities. LAD: 40% mid LAD stenosis. Ostial D1 80% stenosis small caliber vessel, EVIE-3 flow. Distal to apical LAD with 70% stenosis and small in caliber. Ramus, left
circumflex, and RCA with luminal irregularities.
Plan:
She appears stable from a cardiac standpoint postop day 1 status post left hip hemiarthroplasty.
She remains in sinus rhythm. Blood pressure is acceptable.
Agree with resumption of warfarin
Restart furosemide 40 mg a day and potassium 20 mEq daily in AM. Resume atorvastatin.
Discharge planning.
We will sign off, please call if needed.
Progress Note - Nursery Manager
Subjective
Date of Service: July 03, 2025:
85-year-old woman admitted with left hip fracture following a fall associated with lightheadedness and dizziness. She can climb 2 flights of steps without difficulty.
PMH: Mitral valve repair, tricuspid valve repair, bilateral maze and left atrial appendage clip, PAF with history of cardioversions, seizure disorder
Current medications: Metoprolol tartrate 25 mg every 12, phenobarbital, Colace, Senokot, acetaminophen, pantoprazole, furosemide 40 mg daily on hold, atorvastatin 40 mg daily on hold, aspirin 81 mg daily, Dilantin. Warfarin on hold, potassium on
hold, metoprolol tartrate is doubled
156/65, pulse 99, respiratory rate 18, sats are 95%, complaining of some incisional discomfort, head neck exam unremarkable, lungs are clear, regular rate and rhythm without obvious murmurs, abdomen benign extremities without significant edema
Hemoglobin 10.3, platelets 127, BUN and creatinine 15 and 0.8
Objective
Labs:
07/03/25 06:32
07/03/25 06:32
Labs
Hgb 10.3 g/dL (12.0-16.0) L 07/03/25 06:32
Hct 30.0 % (37.0-47.0) L 07/03/25 06:32
Plt Count 127 10^3/uL (130-400) L D 07/03/25 06:32
PT 16.0 Sec (11.4-14.6) H 07/02/25 06:18
INR 1.26 07/02/25 06:18
Sodium 130 mmol/L (135-145) L 07/03/25 06:32
Potassium 3.8 mmol/L (3.5-5.1) 07/03/25 06:32
BUN 15 mg/dl (7-17) 07/03/25 06:32
Creatinine 0.8 mg/dL (0.6-1.0) 07/03/25 06:32
Glucose 126 mg/dl (70-99) H 07/03/25 06:32
Vital Signs and I&O:
Vital Signs
Temp Pulse Resp BP Pulse Ox
37.1 C 70 17 136/56 96
07/03/25 07:37 07/03/25 07:37 07/03/25 07:37 07/03/25 07:37 07/03/25 07:37
Vital Signs
Temp Pulse Resp BP Pulse Ox
37.1 C 70 17 136/56 96
07/03/25 07:37 07/03/25 07:37 07/03/25 07:37 07/03/25 07:37 07/03/25 07:37
Intake & Output
07/01/25 07/02/25 07/03/25 07/04/25
07:59 07:59 07:59 07:59
Intake Total 1450.5 / 1450.5 200 / 200
Output Total 800 / 800 550 / 550
Balance 650.5 / 650.5 -350 / -350
Physical Exam
Physical Exam
See above
[2025-07-03] MEDS: SENOKOT 17.2 MG PO ×2 (09:16→20:41)
[2025-07-03] MEDS: COLACE 100 MG PO ×2 (09:16→20:40)
[2025-07-03] MEDS: LOPRESSOR 25 MG PO ×2 (09:16→20:41)
[2025-07-03] MEDS: PROTONIX IV 40 MG IV (09:18)
[2025-07-03] MEDS: NSS (PRESERVATIVE FREE) 10 ML IV (09:18)
[2025-07-03] MEDS: NON-FORMULARY ITEM 1 UNIT PO ×3 (09:19→21:12)
[2025-07-03] MEDS: DILAUDID 0.25 MG IV (09:28)
--- NOTE | 2025-07-03 09:49 | W.PN.HOSP.TC ---
Today's Communication/Plan
-
Resume Coumadin
Assessment / Plan
Assessment / Plan
Physical Exam
General: not in respiratory distress
HEENT: Normocephalic, atraumatic
Respiratory: Clear
Cardiac: S1/S2
GI: Soft, Non Tender, Non Distended and Normal Bowel Sounds
Musculoskeletal: No Clubbing, No Cyanosis, No Edema and Other (Left lat thigh/ clean dressing
Skin: No Rash
Neuro: AO x 3 and Nonfocal/grossly intact
Psych: Calm
# Left femoral neck fracture
s/p Left hip hemiarthroplasty by Dr. Arias on 07/02, no complications reported.
c/w pain control
ok to resume Coumadin
# Hyponatremia, mild
No confusion
# Mild acute blood loss anemia
# Dry eye, eye drops PRN
# S/ P mitral regurgitation s/p mitral valve repair, tricuspid valve repair, biatrial maze and GLORIA clip on 06/21/2022
Primary drywall taper Dr Augustin
# Mild elevation in LFT
resolved.
No abd pain
# chronic heart failure preserved EF
# Seizure disorder -history of seizures has since 66 years ago and she has been chronically on Dilantin and phenobarbital. Her last seizure was in the remote past.
� Continue phenobarbital 16.2 mg at bedtime
� Continue Dilantin 100 mg 3 times daily,
# Paroxysmal atrial fibrillation
- continue metoprolol
- resuming Coumadin
# positional vertigo
# Sjogren's syndrome with Peripheral neuropathy
HTN
- continue her metoprolol
DVT PPX - resuming Coumadin for now
Code status - full code
Total time spent to see the patient, examine the patient, review data and lab results, discuss treatment plan with patient, nursing staff around 55 minutes�
Anticipated Discharge: 24 - 48 hours
Subjective/Interval History
-
Date of Service: July 03, 2025
less pain in leg
no dry eye
no chest pain
no sob
Objective Data
-
Labs:
Laboratory Results
07/03/25
06:32
WBC 13.2 H
Hgb 10.3 L
Hct 30.0 L
Plt Count 127 L D
Sodium 130 L
Potassium 3.8
Chloride 98
Carbon Dioxide 27
BUN 15
Creatinine 0.8
Glucose 126 H
Calcium 8.5
Total Bilirubin 0.4
AST 37 H
ALT 23
Alkaline Phosphatase 93
Vital Signs:
Vital Signs
Temp Pulse Resp BP Pulse Ox
98.8 F 70 17 136/56 96
07/03/25 07:37 07/03/25 07:37 07/03/25 07:37 07/03/25 07:37 07/03/25 07:37
I&O
07/02/25 07/03/25 07/04/25
06:59 06:59 06:59
Intake Total 1450.5 / 1450.5 200 / 200
Output Total 800 / 800 550 / 550
Balance 650.5 / 650.5 -350 / -350
--- NOTE | 2025-07-03 15:14 | CM ---
Addendum entered by Ellen Nuno 07/03/25 15:20:
Phone- [phone] Fax- [phone]
SNF requesting transport at 3:30pm tomorrow
Original Note:
CM reviewed pt with attending- ADC tomorrow
Bedside meeting with pt- bed available at [facility]
Pt is in agreement
IMM verbally reviewed- copy provided
Auth obtained from [facility] for SNF and BLS
Update to pt's son/Devaughn
Medical necessity on chart
COVID test requested for SNF placement
SNF auth#[id number] 07/03-07/08 [facility] call [phone]
[facility] Auth [facility] [address] 07/04 & 07/05 [id number]
On-call [facility] admissions Kim [phone]
Discharge Disposition- ADC tomorrow to [facility] SNF via BLS
awaiting number for report
[2025-07-03] MEDS: TYLENOL 1000 MG PO ×2 (15:38→21:12)
[2025-07-03 16:51] LABS: Urine Character Slightly Cloudy (Clear)
[2025-07-03 17:03] LABS: Urine Squamous Cell 0-2 /LPF (Few)
[2025-07-03 17:04] LABS: Urine White Cell 90-100 /HPF (0-5)
[2025-07-03] MEDS: NSS 1000 IV (17:24)
[2025-07-03] MEDS: COUMADIN 7.5 MG PO (17:34)
[2025-07-03] MEDS: LIPITOR 40 MG PO (18:31)
[2025-07-03] MEDS: MILK OF MAGNESIA 30 ML PO (20:41)
[2025-07-03] MEDS: LUMINAL 16.2 MG PO (21:11)
[2025-07-04] VITALS (7 sets, daily range): BP systolic 110–142; BP diastolic 52–62; PULSE 71–72; O2SAT 94; BMI 19.5
[2025-07-04 07:39] LABS: INR 1.36; PT 17.3 Sec (11.4-14.6)
[2025-07-04 07:45] LABS: Hematocrit 27.5 % (37.0-47.0); Hemoglobin 9.4 g/dL (12.0-16.0); Mean Corp Hgb Conc. 34.2 g/dL (33.0-37.0); Mean Corpuscular Volume 92.9 fL (81.0-99.0); Platelet Count 129 10^3/uL (130-400); Red Cell Dist. Width 12.6 % (11.5-14.5)
[2025-07-04] MEDS: AZACTAM 1000 MG IV (09:26)
[2025-07-04] MEDS: STERILE WATER FOR INJECTION 10 ML IV (09:26)
[2025-07-04] MEDS: FLUSH (NSS) 2 FLUSH IV (09:26)
[2025-07-04] MEDS: COLACE 100 MG PO ×2 (09:27→20:38)
[2025-07-04] MEDS: TYLENOL 1000 MG PO ×3 (09:27→21:23)
[2025-07-04] MEDS: SENOKOT 17.2 MG PO ×2 (09:27→20:38)
[2025-07-04] MEDS: PROTONIX 40 MG PO (09:27)
[2025-07-04] MEDS: LASIX 40 MG PO (09:29)
[2025-07-04] MEDS: KCL 20 MEQ PO (09:29)
[2025-07-04] MEDS: LOPRESSOR 25 MG PO ×2 (09:30→20:39)
[2025-07-04] MEDS: NON-FORMULARY ITEM 1 UNIT PO ×3 (09:30→21:24)
--- NOTE | 2025-07-04 10:08 | W.PN.HOSP.TC ---
Today's Communication/Plan
-
No discharge due to fever/ UTI
Started on IV abx
Did blood cultures
Consulted ID
Updated her son
Assessment / Plan
Assessment / Plan
Physical Exam
General: not in respiratory distress
HEENT: Normocephalic, atraumatic
Respiratory: Clear
Cardiac: S1/S2
GI: Soft, Non Tender, Non Distended and Normal Bowel Sounds
Musculoskeletal: No Clubbing, No Cyanosis, No Edema and Other (Left lat thigh/ clean dressing
Skin: No Rash
Neuro: AO x 3 and Nonfocal/grossly intact
Psych: Calm
# fever
Seems to resolve
pt denies focal signs of complaints
Suspect UTI
Know to have UTI in past
Will do bladder scan protocol
IV Aztreonam( she had it before)
Did blood and urine cultures
Consulted ID
Negative flu
# Left femoral neck fracture
s/p Left hip hemiarthroplasty by Dr. Yao;desiree on 07/02, no complications reported.
c/w pain control
Resumed Coumadin
# Hyponatremia, mild
No confusion
# Mild acute blood loss anemia
# Dry eye, eye drops PRN
# S/ P mitral regurgitation s/p mitral valve repair, tricuspid valve repair, biatrial maze and GLORIA clip on 06/21/2022
Primary commercial account manager Dr Augustin
# Mild elevation in LFT
resolved.
No abd pain
# chronic heart failure preserved EF
# Seizure disorder -history of seizures has since 66 years ago and she has been chronically on Dilantin and phenobarbital. Her last seizure was in the remote past.
� Continue phenobarbital 16.2 mg at bedtime
� Continue Dilantin 100 mg 3 times daily,
# Paroxysmal atrial fibrillation
- continue metoprolol
- resuming Coumadin
# positional vertigo
# Sjogren's syndrome with Peripheral neuropathy
HTN
- continue her metoprolol
DVT PPX - resuming Coumadin for now
Code status - full code
Total time spent to see the patient, examine the patient, review data and lab results, discuss treatment plan with patient, her son, ID doctor, nursing staff around 55 minutes�
Anticipated Discharge: 24 - 48 hours
Subjective/Interval History
-
Date of Service: July 04, 2025
No chest pain
No sob
Objective Data
-
Labs:
Laboratory Results
07/04/25
06:55
WBC 11.3 H
Hgb 9.4 L
Hct 27.5 L
Plt Count 129 L
PT 17.3 H
INR 1.36
Vital Signs:
Vital Signs
Temp Pulse Resp BP Pulse Ox
98.7 F 92 16 137/56 92
07/04/25 07:40 07/04/25 09:30 07/04/25 07:40 07/04/25 09:30 07/04/25 07:40
I&O
07/03/25 07/04/25 07/05/25
06:59 06:59 06:59
Intake Total 200 / 200 1540 / 1540
Output Total 550 / 550 700 / 700
Balance -350 / -350 840 / 840
--- NOTE | 2025-07-04 12:39 | CON.ID ---
Consultation
-
Date/Time Consultation Requested: July 04, 2025 0640
Date/Time Consultation Performed: July 04, 2025 1240
Requesting Provider: Dr. Fadia Giordano
Performing Provider: Dr. Rima Hankins
Reason for Consultation: Postop fever, suspect UTI, multiple antibiotic allergies
Chief Complaint / Past History
Chief Complaint
Fall
History of Present Illness
85-year-old female with history of mitral valve repair, tricuspid valve repair, atrial fibrillation on Coumadin, presyncope episodes who presented to the hospital July 01 after a fall from feeling lightheaded. She sustained left displaced
femoral neck fracture. July 02, she underwent left hip hemiarthroplasty. July 03 she developed fever and leukocytosis. UA positive nitrite, 3+ leukocyte esterase, 90�100 white blood cells, urine culture 100 K mixed radha, blood culture
pending. She is started on aztreonam today. She reports multiple antibiotic allergies. She did receive 2 doses of cefazolin preop prophylaxis and tolerated abx. Patient reports no fever or chills at home until yesterday. She had shaking chills
with the fever. No headache, sinus congestion, or sore throat. No cough or shortness of breath. No nausea, vomiting, abdominal pain, or diarrhea. No dysuria, urgency, frequency, or flank pain. No rash.
Past History
Additional Past Medical History:
Hypertension
Seizure disorder
Mitral regurgitation status post mitral valve repair
Tricuspid regurgitation status post tricuspid valve repair
Paroxysmal atrial fibrillation on Coumadin
CAD
Pulmonary hypertension
Anxiety
Allergy History:
azithromycin Allergy (Verified 07/01/25 02:27)
Unknown
cefprozil (From Cefzil) Allergy (Verified 07/01/25 02:27)
FACIAL SWELLING
ciprofloxacin (From Cipro) Allergy (Verified 07/01/25 02:27)
Swelling
Penicillins Allergy (Verified 07/01/25 02:27)
Swelling
sulfamethoxazole (From Bactrim) Allergy (Verified 07/01/25 02:27)
FACIAL SWELLING
trimethoprim (From Bactrim) Allergy (Verified 07/01/25 02:27)
Unknown
Medications Reviewed: Yes
Current Antibiotics:
Aztreonam
Social History
Tobacco: Non-Smoker
Alcohol: None
Drug: None
Living: With Family
Family History
Family History: Not Pertinent
Review of Systems
Review of Systems
General: Chills; Negative Change in Appetite
HEENT: Negative Sinus Problems or Pharyngitis
Cardiovascular: Negative Chest Pain or Dyspnea
Respiratory: Negative Dyspnea or Cough
Gasteroenterology: Negative Nausea, Vomiting or Diarrhea
Genital / Urological: Negative Dysuria or Flank Pain
Endocrine: Negative Weakness
All systems: All other systems were reviewed and were negative
Vital Signs
Temp Pulse Resp BP Pulse Ox
100.0 F 75 20 119/53 92
07/04/25 11:34 07/04/25 11:34 07/04/25 11:34 07/04/25 11:34 07/04/25 11:34
Physical Exam
Physical Exam
Constitutional: No Acute Distress and Comfortable
Head: Other (No sinus tenderness)
Eyes: No Conjunctival Hemorrhage and Sclera Anicteric
Cardiovascular: Regular Rate and S1/S2
Pulmonary: Clear
Gastrointestinal: Soft, Non Tender and Normal Bowel Sounds
Genito-Urinary: Negative Suprapubic Tenderness or CVA Tenderness
Extremities: Negative Edema
Wound: Other (Left hip dressing intact and dry)
Neurological: AO x 3
Lab / Diagnostic Study Results
07/04/25 06:55
07/03/25 06:32
Abs Immat Gran (auto) 0.0 10^3/uL (0-0.05) 07/01/25 03:23
Absolute Neuts (auto) 4.3 10^3/uL (1.4-6.5) 07/01/25 03:23
Absolute Lymphs (auto) 1.2 10^3/uL (1.2-3.4) 07/01/25 03:23
Absolute Monos (auto) 0.6 10^3/uL (0.1-0.6) 07/01/25 03:23
Absolute Basos (auto) 0.0 10^3/uL (0-0.2) 07/01/25 03:23
Immature Gran % 0.6 % (0-0.5) H 07/01/25 03:23
Neutrophils % 69.1 % (42.2-75.2) 07/01/25 03:23
Lymphocytes % 18.5 % (20.5-51.1) L 07/01/25 03:23
Monocytes % 9.5 % (1.7-9.3) H 07/01/25 03:23
Eosinophils % 1.8 % (0-6) 07/01/25 03:23
Basophils % 0.5 % (0-2) 07/01/25 03:23
PT 17.3 Sec (11.4-14.6) H 07/04/25 06:55
INR 1.36 07/04/25 06:55
Ur Squamous Epith Cells 0-2 /LPF (Few) 07/03/25 16:44
Microbiology Results
Micro:
07/03/25 16:44 Urine Culture - Final
Urine
07/03/25 16:44 Influenza Types A & B (BON) - Final
Nasal Swab Negative for Influenza A & B, NAAT
Negative results must be combined with clinical observations
and patient history.
Nucleic Acid Amplification test (NAAT)performed on the
[employer] platform.
07/03/25 17:08 Blood Culture - Pending
Blood/Venous
07/01/25 L Hip XRAY: There is a mildly displaced transcervical femoral neck fracture.
Assessment / Plan
# Left hip fracture status post ernie-arthroplasty 07/02.
# Postop fever, trending down
# Postop leukocytosis, trending down
# Pyuria without dysuria
# Multiple abx allergies
- Suspect post-op fever within the 72hr window.
- Fever and leukocytosis improving prior to abx
- Pt without focal signs and symptoms .
- UA +, but no urine sxs. Ucx: mixed radha.
- DC Aztreonam and observe.
- Trend temps/wbc.
Care Review
Plan reviewed with: Physician (Dr. Giordano)
[2025-07-04] MEDS: ROXICODONE 5 MG PO (12:50)
--- NOTE | 2025-07-04 14:41 | W.PN.UPDATE ---
Update Note
Progress Note Update
POD#2 left hip hemiarthroplasty
Dressing clean, dry and intact
Intact ankle dorsi/ plantarflexion, hallux flexion/ extension
Sensation intact distally
Plan:
PT
Dispo planning
[2025-07-04] MEDS: COUMADIN 6 MG PO (17:00)
[2025-07-04] MEDS: LIPITOR 40 MG PO (17:00)
--- NOTE | 2025-07-04 18:47 | PTCARENOTE ---
Pt assisted back to bed after being in chair for about 2 hours from PT session. Pt was very difficult to return to bed with 2 people. Pt unable to bear weight and do much moving on her own. Pt assisted to commode first to urinate and then returned
to bed. Daughter in room with patient currently having dinner.
[2025-07-04] MEDS: LUMINAL 16.2 MG PO (21:24)
[2025-07-05] VITALS (10 sets, daily range): BP systolic 120–147; BP diastolic 53–68; PULSE 73–93; O2SAT 97; BMI 21.4
[2025-07-05 06:37] LABS: INR 1.71; PT 20.5 Sec (11.4-14.6)
[2025-07-05] MEDS: KCL 20 MEQ PO (08:04)
[2025-07-05] MEDS: SENOKOT 17.2 MG PO (08:04)
[2025-07-05] MEDS: TYLENOL 1000 MG PO ×3 (08:05→21:30)
[2025-07-05] MEDS: PROTONIX 40 MG PO (08:05)
[2025-07-05] MEDS: LOPRESSOR 25 MG PO ×2 (08:05→19:59)
[2025-07-05] MEDS: LASIX 40 MG PO (08:06)
[2025-07-05] MEDS: COLACE 100 MG PO (08:06)
[2025-07-05] MEDS: NON-FORMULARY ITEM 1 UNIT PO ×3 (08:07→21:30)
--- NOTE | 2025-07-05 08:48 | CM ---
Addendum entered by Leandra Sen RN 07/05/25 10:20:
CM reviewed medical records. CM updated Lashell at [facility] with delay in discharge. CM will remain available as needed.
PLAN: [facility] when medically ready.
Original Note:
CM reviewed medical records. CM will await medical clearance for discharge. CM updated Lashell at [facility] with discharge update.
PLAN: [facility] when medically ready.
--- NOTE | 2025-07-05 09:15 | W.PN.HOSP.TC ---
Today's Communication/Plan
-
f/w ID recommendations
Assessment / Plan
Assessment / Plan
Physical Exam
General: not in respiratory distress
HEENT: Normocephalic, atraumatic
Respiratory: Clear
Cardiac: S1/S2
GI: Soft, Non Tender, Non Distended and Normal Bowel Sounds
Musculoskeletal: No Clubbing, No Cyanosis, No Edema and Other (Left lat thigh/ clean dressing
Skin: No Rash
Neuro: AO x 3 and Nonfocal/grossly intact
Psych: Calm
# fever
Seems to resolve
pt denies focal signs of complaints
Suspected UTI
Know to have UTI in past
Bladder scan showing retention, inability to void.
IV Aztreonam( she had it before) but stopped by ID
Blood and urine cultures are NGTD
Consulted ID
Negative flu
# Left femoral neck fracture
s/p Left hip hemiarthroplasty by Dr. Yao;an on 07/02, no complications reported.
c/w pain control
Resumed Coumadin
# Hyponatremia, mild
No confusion
# Mild acute blood loss anemia
# Dry eye, eye drops PRN
# S/ P mitral regurgitation s/p mitral valve repair, tricuspid valve repair, biatrial maze and GLORIA clip on 06/21/2022
Primary piece dyer Dr Augustin
# Mild elevation in LFT
resolved.
No abd pain
# chronic heart failure preserved EF
# Seizure disorder -history of seizures has since 66 years ago and she has been chronically on Dilantin and phenobarbital. Her last seizure was in the remote past.
� Continue phenobarbital 16.2 mg at bedtime
� Continue Dilantin 100 mg 3 times daily,
# Paroxysmal atrial fibrillation
- continue metoprolol
- resuming Coumadin
# positional vertigo
# Sjogren's syndrome with Peripheral neuropathy
HTN
- continue her metoprolol
DVT PPX - resuming Coumadin for now
Code status - full code
Total time spent to see the patient, examine the patient, review data and lab results, discuss treatment plan with patient, her son, ID doctor, nursing staff around 55 minutes�
Anticipated Discharge: Within 24 hours
Subjective/Interval History
-
Date of Service: July 05, 2025
No compalints
Objective Data
-
Labs:
Laboratory Results
07/05/25
05:51
PT 20.5 H
INR 1.71
Vital Signs:
Vital Signs
Temp Pulse Resp BP Pulse Ox
98.8 F 72 18 147/62 95
07/05/25 03:00 07/05/25 08:05 07/05/25 03:00 07/05/25 08:05 07/05/25 03:00
I&O
07/04/25 07/05/25 07/06/25
06:59 06:59 06:59
Intake Total 1540 / 1540 1080 / 1080
Output Total 700 / 700
Balance 840 / 840 1080 / 1080
--- NOTE | 2025-07-05 10:10 | W.PN.UPDATE ---
Update Note
Progress Note Update
Patient seen and examined. Family present. Dressing CDI. NVI distally. Calf soft. For transfer to [facility] when medically stable.
--- NOTE | 2025-07-05 13:10 | W.PN.ID1 ---
Date of Service
Date of Service: July 05, 2025
Today's Communication
Begin aztreonam.
Assessment / Plan
# Left hip fracture status post ernie-arthroplasty 07/02.
# Postop fever; ongoing
# Postop leukocytosis, trending down
# Pyuria without dysuria
# Urinary retention; mchugh placed
# Multiple abx allergies
Recommendations:
Temperature curve seems to be persistent.
Prior urine culture noted to be polymicrobial; I have asked Microbiology to further workup sample.
Blood cultures ordered.
Will initiate aztreonam.
Trend temps/wbc.
Chief Complaint
-: Fever
Subjective / Review of Systems
Patient seen and examined. Notes fevers overnight. Mchugh catheter required placement secondary to retention.
Vital Signs / Physical Exam
Vital Signs
Vital Signs
Temp Pulse Resp BP Pulse Ox
100.4 F H 66 18 120/53 92
07/05/25 11:13 07/05/25 11:13 07/05/25 11:13 07/05/25 11:13 07/05/25 11:13
Physical Exam
Constitutional: No Acute Distress, Comfortable and Non-toxic
Eyes: Sclera Anicteric
Cardiovascular: S1/S2; Negative S3/S4
Pulmonary: Non Labored; Negative Wheezes or Rhonchi
Gastrointestinal: Soft and Non Tender
Genito-Urinary: Mchugh and Clear Urine; Negative Turbid Urine or Hematuria
Neurological: Awake, Alert and Oriented
Objective Data
Lab Data
Lab Results
07/04/25 06:55
07/03/25 06:32
PT 20.5 Sec (11.4-14.6) H 07/05/25 05:51
INR 1.71 07/05/25 05:51
Estimated Creat Clear 44 ml/min 07/03/25 06:32
Total Bilirubin 0.4 mg/dl (0.2-1.3) 07/03/25 06:32
AST 37 U/L (14-36) H 07/03/25 06:32
ALT 23 U/L (0-35) 07/03/25 06:32
Alkaline Phosphatase 93 U/L (38-126) 07/03/25 06:32
Most recent labs reviewed.
Micro Results:
07/03/25 16:44 Urine Culture - Preliminary
Urine
07/05/25 09:30 Blood Culture - Pending
Blood/Venous
07/03/25 17:08 Blood Culture - Preliminary
Blood/Venous No Growth in 24 hours- Final report to follow
07/03/25 16:44 Influenza Types A & B (BON) - Final
Nasal Swab Negative for Influenza A & B, NAAT
Negative results must be combined with clinical observations
and patient history.
Nucleic Acid Amplification test (NAAT)performed on the
[employer] platform.
07/01/25 L Hip XRAY: There is a mildly displaced transcervical femoral neck fracture.
Care Review
Plan reviewed with: Physician (Hospitalist)
[2025-07-05] MEDS: AZACTAM 1000 MG IV ×2 (13:46→21:32)
[2025-07-05] MEDS: STERILE WATER FOR INJECTION 10 ML IV ×2 (13:46→21:32)
[2025-07-05] MEDS: COUMADIN 6 MG PO (17:39)
[2025-07-05] MEDS: LIPITOR 40 MG PO (17:39)
[2025-07-05] MEDS: SENOKOT PO (20:54)
[2025-07-05] MEDS: COLACE PO (20:54)
[2025-07-05] MEDS: LUMINAL 16.2 MG PO (21:31)
[2025-07-06 03:00] VITALS: BP 146/64
[2025-07-06] MEDS: STERILE WATER FOR INJECTION 10 ML IV ×3 (05:24→21:07)
[2025-07-06] MEDS: AZACTAM 1000 MG IV ×3 (05:24→21:07)
[2025-07-06 06:00] VITALS: BMI 21.3
[2025-07-06] MEDS: DILAUDID 0.25 MG IV (06:00)
[2025-07-06 07:00] VITALS: BP 144/61
[2025-07-06 07:42] LABS: INR 1.98; PT 22.7 Sec (11.4-14.6)
[2025-07-06 07:55] LABS: Hematocrit 25.1 % (37.0-47.0); Hemoglobin 8.7 g/dL (12.0-16.0); Mean Corp Hgb Conc. 34.7 g/dL (33.0-37.0); Mean Corpuscular Volume 91.9 fL (81.0-99.0); Platelet Count 156 10^3/uL (130-400); Red Cell Dist. Width 12.6 % (11.5-14.5)
[2025-07-06 07:57] LABS: Blood Urea Nitrogen 26 mg/dl (7-17); Calcium 8.1 mg/dl (8.4-10.2); Carbon Dioxide 28 mmol/L (22-30); Chloride 100 mmol/L (98-107); Estimated Creatinine Clearance 48 ml/min; Glucose 101 mg/dl (70-99); Potassium 4.0 mmol/L (3.5-5.1); Sodium 130 mmol/L (135-145); eGFR > 60.00
[2025-07-06] MEDS: LOPRESSOR 25 MG PO ×2 (09:28→19:25)
[2025-07-06] MEDS: KCL 20 MEQ PO (09:28)
[2025-07-06] MEDS: NON-FORMULARY ITEM 1 UNIT PO ×3 (09:29→21:06)
[2025-07-06] MEDS: TYLENOL 1000 MG PO ×3 (09:29→21:07)
[2025-07-06] MEDS: SENOKOT 17.2 MG PO ×2 (09:29→19:27)
[2025-07-06] MEDS: PROTONIX 40 MG PO (09:29)
[2025-07-06] MEDS: LASIX 40 MG PO (09:29)
[2025-07-06] MEDS: COLACE 100 MG PO ×2 (09:29→19:26)
--- NOTE | 2025-07-06 09:35 | W.PN.HOSP.TC ---
Today's Communication/Plan
-
c/w IV Abx
Assessment / Plan
Assessment / Plan
Physical Exam
General: not in respiratory distress
HEENT: Normocephalic, atraumatic
Respiratory: Clear
Cardiac: S1/S2
GI: Soft, Non Tender, Non Distended and Normal Bowel Sounds
Musculoskeletal: No Clubbing, No Cyanosis, No Edema and Other (Left lat thigh/ clean dressing
Skin: No Rash
Neuro: AO x 3 and Nonfocal/grossly intact
Psych: Calm
# fever
Suspect UTI
Afebrile this morning
No urinary symptom but Bladder scan showed retention few times, inability to void. S/p Estrada. Start Flomax
Know to have UTI in past
IV Aztreonam( she had it before)
Blood cultures are NGTD
Await urine culture to finalize
Consulted ID
Negative flu
# Left femoral neck fracture
s/p Left hip hemiarthroplasty by Dr. Arias on 07/02, no complications reported.
c/w pain control
Resumed Coumadin
# Hyponatremia, mild
No confusion
# Mild acute blood loss anemia
# Dry eye, eye drops PRN
# S/ P mitral regurgitation s/p mitral valve repair, tricuspid valve repair, biatrial maze and GLORIA clip on 06/21/2022
Primary drug abuse counselor Dr Augustin
# Mild elevation in LFT
resolved.
No abd pain
# chronic heart failure preserved EF
# Seizure disorder -history of seizures has since 66 years ago and she has been chronically on Dilantin and phenobarbital. Her last seizure was in the remote past.
� Continue phenobarbital 16.2 mg at bedtime
� Continue Dilantin 100 mg 3 times daily,
# Paroxysmal atrial fibrillation
- continue metoprolol
- resuming Coumadin
# positional vertigo
# Sjogren's syndrome with Peripheral neuropathy
HTN
- continue her metoprolol
DVT PPX - resuming Coumadin for now
Code status - full code
Total time spent to see the patient, examine the patient, review data and lab results, discuss treatment plan with patient, her daughter, ID doctor, nursing staff around 55 minutes�
Anticipated Discharge: > 48 hours
Subjective/Interval History
-
Date of Service: July 06, 2025
No chest pain
No sob
No fevers
Objective Data
-
Labs:
Laboratory Results
07/06/25
06:40
WBC 8.1
Hgb 8.7 L
Hct 25.1 L
Plt Count 156 D
PT 22.7 H
INR 1.98
Sodium 130 L
Potassium 4.0
Chloride 100
Carbon Dioxide 28
BUN 26 H
Creatinine 0.8
Glucose 101 H
Calcium 8.1 L
Vital Signs:
Vital Signs
Temp Pulse Resp BP Pulse Ox
98.9 F 67 14 144/61 93
07/06/25 07:00 07/06/25 09:28 07/06/25 07:00 07/06/25 09:28 07/06/25 07:00
I&O
07/05/25 07/06/25 07/07/25
06:59 06:59 06:59
Intake Total 1080 / 1080 2656 / 2656
Output Total 1350 / 1350 300 / 300
Balance 1080 / 1080 1306 / 1306 -300 / -300
[2025-07-06 11:00] VITALS: BP 144/66
[2025-07-06] MEDS: FLOMAX 0.4 MG PO (11:04)
[2025-07-06] MEDS: ROXICODONE 5 MG PO (11:04)
[2025-07-06 12:13] VITALS: BP 141/67; BP 143/59; PULSE 69; O2SAT 95
--- NOTE | 2025-07-06 12:34 | CM ---
Chart reviewed; Anticipated Discharge: > 48 hours
Plan: Discharge to [facility] SNF when medically stable
[2025-07-06 15:00] VITALS: BP 130/61
[2025-07-06] MEDS: LIPITOR 40 MG PO (17:21)
[2025-07-06] MEDS: COUMADIN 6 MG PO (17:21)
[2025-07-06] MEDS: LUMINAL 16.2 MG PO (21:11)
[2025-07-06 23:28] VITALS: BP 129/51
[2025-07-07] MEDS: STERILE WATER FOR INJECTION 10 ML IV (05:20)
[2025-07-07] MEDS: AZACTAM 1000 MG IV (05:20)
[2025-07-07 06:00] VITALS: BMI 20.6
[2025-07-07 06:06] LABS: INR 2.11; PT 23.9 Sec (11.4-14.6)
[2025-07-07 07:00] VITALS: BP 148/54
--- NOTE | 2025-07-07 09:24 | W.PN.HOSP.TC ---
Today's Communication/Plan
-
iron therapy
f/w ID recommendations
Voiding trial
Assessment / Plan
Assessment / Plan
Physical Exam
General: not in respiratory distress
HEENT: Normocephalic, atraumatic
Respiratory: Clear
Cardiac: S1/S2
GI: Soft, Non Tender, Non Distended and Normal Bowel Sounds
Musculoskeletal: No Clubbing, No Cyanosis, No Edema and Other (Left lat thigh/ clean dressing
Skin: No Rash
Neuro: AO x 3 and Nonfocal/grossly intact
Psych: Calm
# UTI, had fever
Afebrile this morning
No urinary symptom but Bladder scan showed retention few times, inability to void. S/p Estrada. Start Flomax
Know to have UTI in past
s/p IV Aztreonam( she had it before)
Blood cultures are NGTD
WBC is normal.
Urine culture showed E. coli and strep species.
Consulted ID, changed Aztreonam to Doxy, monitor Temperature curve.
Negative flu
# Acute postop urinary retention
Patient has had urine issues in the past. Will start the patient on Flomax
Voiding trial after treating UTI. Voiding trial order is in place for nursing staff
# Left femoral neck fracture
s/p Left hip hemiarthroplasty by Dr. Arias on 07/02, no complications reported.
c/w pain control
Resumed Coumadin
# Hyponatremia, mild
No confusion
# Mild acute blood loss anemia
Started on iron therapy
No hypotension.
# Dry eye, eye drops PRN
# S/ P mitral regurgitation s/p mitral valve repair, tricuspid valve repair, biatrial maze and GLORIA clip on 06/21/2022
Primary provider relations coordinator Dr Augustin
# Mild elevation in LFT
resolved.
No abd pain
# chronic heart failure preserved EF
# Seizure disorder -history of seizures has since 66 years ago and she has been chronically on Dilantin and phenobarbital. Her last seizure was in the remote past.
� Continue phenobarbital 16.2 mg at bedtime
� Continue Dilantin 100 mg 3 times daily,
# Paroxysmal atrial fibrillation
- continue metoprolol
- resuming Coumadin
# positional vertigo
# Sjogren's syndrome with Peripheral neuropathy
HTN
- continue her metoprolol
DVT PPX - resumed Coumadin for now
Code status - full code
plan was d/w daughter Maria Isabel.
Total time spent to see the patient, examine the patient, review data and lab results, discuss treatment plan with patient, her daughter, ID doctor, nursing staff around 55 minutes�
Anticipated Discharge: > 48 hours
Subjective/Interval History
-
Date of Service: July 07, 2025
No chest pain
No sob
No fevers
Objective Data
-
Labs:
Laboratory Results
07/07/25
05:37
PT 23.9 H
INR 2.11
Vital Signs:
Vital Signs
Temp Pulse Resp BP Pulse Ox
99.7 F 67 14 148/54 93
07/07/25 07:00 07/07/25 07:00 07/07/25 07:00 07/07/25 07:00 07/07/25 07:00
I&O
07/06/25 07/07/25 07/08/25
06:59 06:59 06:59
Intake Total 2656 / 2656 240 / 240
Output Total 1350 / 1350 900 / 900
Balance 1306 / 1306 -660 / -660
[2025-07-07] MEDS: TYLENOL 1000 MG PO ×3 (09:32→21:55)
[2025-07-07] MEDS: KCL 20 MEQ PO (09:32)
[2025-07-07] MEDS: PROTONIX 40 MG PO (09:33)
[2025-07-07] MEDS: LASIX 40 MG PO (09:33)
[2025-07-07] MEDS: COLACE 100 MG PO ×2 (09:33→19:43)
[2025-07-07] MEDS: FLOMAX 0.4 MG PO (09:33)
[2025-07-07] MEDS: SENOKOT 17.2 MG PO ×2 (09:33→19:43)
[2025-07-07] MEDS: LOPRESSOR 25 MG PO ×2 (09:33→19:44)
[2025-07-07] MEDS: NON-FORMULARY ITEM 1 UNIT PO ×3 (09:34→21:56)
[2025-07-07] MEDS: ROXICODONE 5 MG PO (09:54)
--- NOTE | 2025-07-07 09:54 | W.PN.ID1 ---
Date of Service
Date of Service: July 07, 2025
Today's Communication
Transition to PO doxy.
Assessment / Plan
# Left hip fracture status post ernie-arthroplasty 07/02.
# Postop fever; improved
# Postop leukocytosis, trending down
# Pyuria (without dysuria)
# Urinary retention; mchugh placed
# Multiple abx allergies
Recommendations:
Temperature curve seems to be improved
Prior urine culture noted to be polymicrobial. Workup shows E. coli and strep spp.
Blood cultures NGTD
Transition to PO doxy and observe.
����������������������������������������������������������
Chief Complaint
-: Fever
Subjective / Review of Systems
Review of Systems: No Fever and No Chills
Vital Signs / Physical Exam
Vital Signs
Vital Signs
Temp Pulse Resp BP Pulse Ox
99.7 F 67 14 148/54 93
07/07/25 07:00 07/07/25 09:33 07/07/25 07:00 07/07/25 09:33 07/07/25 07:00
Physical Exam
Constitutional: No Acute Distress, Comfortable and Non-toxic
Eyes: Sclera Anicteric
Cardiovascular: S1/S2; Negative S3/S4
Pulmonary: Non Labored; Negative Wheezes or Rhonchi
Gastrointestinal: Soft and Non Tender
Genito-Urinary: Mchugh and Clear Urine; Negative Turbid Urine or Hematuria
Neurological: Awake, Alert and Oriented
Objective Data
Lab Data
Lab Results
07/06/25 06:40
07/06/25 06:40
PT 23.9 Sec (11.4-14.6) H 07/07/25 05:37
INR 2.11 07/07/25 05:37
Estimated Creat Clear 48 ml/min 07/06/25 06:40
Total Bilirubin 0.4 mg/dl (0.2-1.3) 07/03/25 06:32
AST 37 U/L (14-36) H 07/03/25 06:32
ALT 23 U/L (0-35) 07/03/25 06:32
Alkaline Phosphatase 93 U/L (38-126) 07/03/25 06:32
Most recent labs reviewed.
Micro Results:
07/05/25 09:30 Blood Culture - Preliminary
Blood/Venous No Growth in 48 hours- Final report to follow
07/03/25 16:44 Urine Culture - Final
Urine Escherichia coli
Streptococcus species
07/03/25 17:08 Blood Culture - Preliminary
Blood/Venous No Growth in 72 hours- Final report to follow
07/03/25 16:44 Influenza Types A & B (BON) - Final
Nasal Swab Negative for Influenza A & B, NAAT
Negative results must be combined with clinical observations
and patient history.
Nucleic Acid Amplification test (NAAT)performed on the
[employer] platform.
Imaging:
07/01/25 L Hip XRAY: There is a mildly displaced transcervical femoral neck fracture.
[2025-07-07] MEDS: VIBRAMYCIN 100 MG PO ×2 (10:27→19:43)
[2025-07-07 10:56] VITALS: BP 131/62; BP 133/62; PULSE 72; O2SAT 94
[2025-07-07 11:00] VITALS: BP 119/55
[2025-07-07 15:00] VITALS: BP 141/60
[2025-07-07] MEDS: COUMADIN 6 MG PO (17:33)
[2025-07-07] MEDS: LIPITOR 40 MG PO (17:34)
[2025-07-07 19:00] VITALS: BP 141/57
[2025-07-07] MEDS: LUMINAL 16.2 MG PO (21:55)
[2025-07-07 22:22] VITALS: BP 137/57
[2025-07-08 03:15] VITALS: BP 122/57
--- NOTE | 2025-07-08 06:00 | PTCARENOTE ---
Upon assessment noted that pt had developed a pressure-related skin injury, a blister on their left posterior thigh caused by thigh high BRENNON stockings. BRENNON stockings removed, area assessed, clean and dry, open to air. Care ongoing.
[2025-07-08 07:35] VITALS: BP 134/60
[2025-07-08 07:35] LABS: Hematocrit 26.2 % (37.0-47.0); Hemoglobin 8.7 g/dL (12.0-16.0); Mean Corp Hgb Conc. 33.2 g/dL (33.0-37.0); Mean Corpuscular Volume 91.9 fL (81.0-99.0); Platelet Count 230 10^3/uL (130-400); Red Cell Dist. Width 12.7 % (11.5-14.5)
[2025-07-08 07:42] LABS: INR 2.18; PT 24.5 Sec (11.4-14.6)
[2025-07-08 08:17] LABS: Blood Urea Nitrogen 19 mg/dl (7-17); Calcium 8.5 mg/dl (8.4-10.2); Carbon Dioxide 26 mmol/L (22-30); Chloride 102 mmol/L (98-107); Estimated Creatinine Clearance 47 ml/min; Glucose 104 mg/dl (70-99); Sodium 131 mmol/L (135-145); eGFR > 60.00
[2025-07-08 08:22] LABS: Potassium 3.8 mmol/L (3.5-5.1)
[2025-07-08] MEDS: FEOSOL 325 MG PO (10:06)
[2025-07-08] MEDS: COLACE 100 MG PO (10:07)
[2025-07-08] MEDS: LASIX 40 MG PO (10:07)
[2025-07-08] MEDS: PROTONIX 40 MG PO (10:07)
[2025-07-08] MEDS: VIBRAMYCIN 100 MG PO (10:07)
[2025-07-08] MEDS: LOPRESSOR 25 MG PO (10:07)
[2025-07-08] MEDS: FLOMAX 0.4 MG PO (10:07)
[2025-07-08] MEDS: TYLENOL 1000 MG PO ×2 (10:07→15:10)
[2025-07-08] MEDS: KCL 20 MEQ PO (10:07)
[2025-07-08] MEDS: NON-FORMULARY ITEM 1 UNIT PO ×2 (10:08→17:19)
[2025-07-08] MEDS: SENOKOT 17.2 MG PO (10:11)
--- NOTE | 2025-07-08 10:35 | W.PN.ID1 ---
Date of Service
Date of Service: July 08, 2025
Today's Communication
Continue PO doxycycline 100mg bid (d4) through 07/11/25.
Assessment / Plan
# Left hip fracture status post ernie-arthroplasty 07/02.
# Postop fever; resolved
# Postop leukocytosis, resolved
# Pyuria (without dysuria)
# Urinary retention; mchugh dc'd
# Multiple abx allergies
Recommendations:
Prior urine culture noted to be polymicrobial. Workup shows E. coli and strep spp.
Blood cultures NGTD
Continue PO doxycycline 100mg bid (d4) through 07/11/25.
����������������������������������������������������������
Chief Complaint
-: Fever
Subjective / Review of Systems
No further chills.
Mchugh dc'd. Voiding fine.
Vital Signs / Physical Exam
Vital Signs
Vital Signs
Temp Pulse Resp BP Pulse Ox
100.1 F 82 15 136/69 95
07/08/25 07:35 07/08/25 10:07 07/08/25 07:35 07/08/25 10:07 07/08/25 07:35
Physical Exam
Constitutional: No Acute Distress, Comfortable and Non-toxic
Eyes: Sclera Anicteric
Cardiovascular: Regular Rate, S1/S2 and S3/S4
Pulmonary: Clear
Gastrointestinal: Soft and Non Tender
Genito-Urinary: Hematuria
Neurological: Awake, Alert and Oriented
Objective Data
Lab Data
Lab Results
07/08/25 06:46
07/08/25 06:46
PT 24.5 Sec (11.4-14.6) H 07/08/25 06:46
INR 2.18 07/08/25 06:46
Estimated Creat Clear 47 ml/min 07/08/25 06:46
Total Bilirubin 0.4 mg/dl (0.2-1.3) 07/03/25 06:32
AST 37 U/L (14-36) H 07/03/25 06:32
ALT 23 U/L (0-35) 07/03/25 06:32
Alkaline Phosphatase 93 U/L (38-126) 07/03/25 06:32
Most recent labs reviewed.
Micro Results:
07/05/25 09:30 Blood Culture - Preliminary
Blood/Venous No Growth in 72 hours- Final report to follow
07/03/25 17:08 Blood Culture - Preliminary
Blood/Venous No Growth in 4 days- Final report to follow
07/03/25 16:44 Urine Culture - Final
Urine Escherichia coli
Streptococcus species
07/03/25 16:44 Influenza Types A & B (BON) - Final
Nasal Swab Negative for Influenza A & B, NAAT
Negative results must be combined with clinical observations
and patient history.
Nucleic Acid Amplification test (NAAT)performed on the
[employer] platform.
Imaging:
07/01/25 L Hip XRAY: There is a mildly displaced transcervical femoral neck fracture.
[2025-07-08 12:13] VITALS: BMI 21.0
[2025-07-08 12:52] VITALS: BP 144/75; PULSE 66; O2SAT 97
[2025-07-08 13:02] VITALS: BP 144/75; PULSE 72; O2SAT 96
--- NOTE | 2025-07-08 14:22 | CM ---
CM reviewed pt with attending- ready for dc
SNF confirmed with [facility]
Bedside meeting with pt- she is in agreement with plan
Call to [place] [phone]- SNF and BLS auth obtained
IMM verbally reviewed, copy provided
Family bedside
COVID test requested for SNF placement
SNF auth# [id number] 5 days 07/08-07/12 NRD/LCD Call [phone]
BLS auth# [id number]
Discharge Disposition- [facility] SNF via BLS
Phone- [phone] Fax- [phone]
--- NOTE | 2025-07-08 14:24 | W.DCSUMMARY ---
Discharge Summary
Discharge Data
Date of Admission: 07/01/25
Date of Discharge: 07/08/25
Total time spent discharging patient (in min): 49
-
Pending Results: No
Hospital Course
Ms. East is an 85-year-old female with a medical history of paroxysmal A-fib (on warfarin), mitral and tricuspid regurgitation (status post valve repair), HFpEF, seizure disorder, CAD, Sjogren syndrome, and pulmonary hypertension who presented
after a fall from standing height. She had some lightheadedness prior to her fall. She did not strike her head or lose consciousness. She broke her left hip during the fall. She underwent surgical repair for left femoral neck fracture on
07/02/2025. She tolerated the procedure well. However she developed a fever postoperatively and was started on antibiotics for a urinary tract infection. Her fevers resolved. Her urine cultures grew E. coli and Streptococcus. She was evaluated
by the infectious disease team and will be continued on antibiotics with doxycycline through 07/11/2025. She also developed postoperative urinary retention requiring Estrada catheterization. She was started on tamsulosin. Ultimately her Estrada
catheter was able to be removed and she was able to void spontaneously. She will be continued on tamsulosin for now and should follow-up with her primary care physician. She will be discharged to [facility]dc facility for ongoing physical
therapy.
General: No Apparent Distress, Comfortable and Conversant
HEENT: NormoCephalic, Moist mucous membranes, Atraumatic
Respiratory: Clear and Non Labored Respirations
Cardiac: S1/S2 and Regular Rhythm; No Rub or Gallop
GI: Soft, Non Tender, Non Distended and Normal Bowel Sounds
Musculoskeletal: No Edema, left hip surgical dressing with mild strikethrough
: NO Estrada
Neuro: Awake, Alert, Nonfocal/grossly intact
Psych: Calm and cooperative
Discharge Plan
-
Patient Disposition: Long-Term/SNF
Discharge Diagnosis/Procedures: - Status post left hip hemiarthroplasty by Dr. Roger on July 02.
- Urinary tract infection with urine culture positive for E. coli & strep species.
- Acute urinary retention
- Anticoagulation with Coumadin for paroxysmal A-fib
- S/ P mitral regurgitation s/p mitral valve repair, tricuspid valve repair, biatrial maze and GLORIA clip on 06/21/[address] Augustin
-- Seizure disorder
Diet: As tolerated
Referrals:
Nathaniel Sepulveda MD [Family Provider, Internal Medicine]
Prescriptions:
New
sennosides [Maura-elba] 8.6 mg Tablet
17.2 mg PO BID Qty: 10 0RF
Rx Instructions:
Hold for soft stools
tamsulosin 0.4 mg Capsule
0.4 mg PO DAILY Qty: 30 0RF
docusate sodium 100 mg Capsule
100 mg PO BID Qty: 10 0RF
Rx Instructions:
Hold for soft stools
doxycycline hyclate 100 mg Capsule
100 mg PO BID Qty: 7 0RF
acetaminophen [Tylenol Extra Strength] 500 mg Tablet
1,000 mg PO TID Qty: 30 0RF
ferrous sulfate [FeroSul] 325 mg (65 mg iron) Tablet
325 mg PO DAILY Qty: 30 0RF
oxycodone 5 mg Tablet
5 mg PO Q4HPRN PRN (Reason: mild pain) Qty: 10 0RF
Continued
phenobarbital 16.2 MG tablet
16.2 mg PO HS
phenytoin sodium extended [Dilantin Extended] 100 MG capsule
100 mg PO TID@0900,1800,2300
Rx Instructions:
brand name only
furosemide [Lasix] 40 mg tablet
40 mg PO DAILY
atorvastatin 40 mg tablet
40 mg PO QPM
ascorbic acid (vitamin C) [Vitamin C] 500 mg tablet
500 mg PO DAILY
pantoprazole 40 mg tablet,delayed release (DR/EC)
40 mg PO DAILY
warfarin 5 mg tablet
6 mg PO QPM
metoprolol tartrate 25 mg tablet
12.5 mg PO BID
potassium chloride 20 mEq Tablet Extended Release
20 meq PO DAILY
Held
aspirin 81 mg tablet,chewable
81 mg PO DAILY
Hold Instructions: Hold until follow-up with your prescribing physician
Discharge Orders:
Discharge Patient (As Directed); Ordered 07/08/25
Ordered By: Keith Jimenez
Discharge Date and Time
Print Language: THAI
[2025-07-08 14:33] LABS: COVID-19 Antigen Negative (Negative)
[2025-07-08 15:10] VITALS: BP 131/53
[2025-07-08] MEDS: ROXICODONE 5 MG PO (15:11)
--- NOTE | 2025-07-08 15:16 | WOUNDNOTE ---
[facility] RN note: Patient developed a stage 2 appearing linear pressure injury from thigh high TEDs. TEDs were removed this morning as per RN Layla. Silicone border foam dressing applied. Skin on heels intact. RN Ruth reports patient's sacral skin is
intact. She is sitting in a recliner chair with an air chair cushion currently. Instructed patient pressure injury prevention measures and to take the chair cushion when discharged. Patient is being discharged to [facility] today. Discharge instructions
updated. Ciaran texted Dr. Jimenez who approved updating discharge instruction for L medial thigh wound care.
[2025-07-08] MEDS: LIPITOR 40 MG PO (17:17)
[2025-07-08] MEDS: COUMADIN 6 MG PO (17:18)
== END 2025-07-08 17:30 | DRG 522 ==
LOC: 2 SOUTH 05:24
PROVIDERS: Internal Medicine; Physician Assistant; ADMITTING PHYSICIAN Internal Medicine; ATTENDING PHYSICIAN Internal Medicine; CONSULT PHYSICIAN Internal Medicine Infectious Disease; CONSULT PHYSICIAN Orthopaedic Surgery; EMERGENCY PHYSICIAN Emergency Medicine; FAMILY PHYSICIAN Internal Medicine; OTHER PHYSICIAN Internal Medicine Cardiovascular Disease
PROC: 0SRS0J9 Replacement of Left Hip Joint, Femoral Surface with Synthetic Substitute, Cemented, Open Approach (ICD-10-PCS; 2025-07-02)
DX: S72.142A Displaced intertrochanteric fracture of left femur, initial encounter for closed fracture (principal); I50.32 Chronic diastolic (congestive) heart failure; N39.0 Urinary tract infection, site not specified; I13.0 Hypertensive heart and chronic kidney disease with heart failure and stage 1 through stage 4 chronic kidney disease, or unspecified chronic kidney disease; E87.1 Hypo-osmolality and hyponatremia; D62 Acute posthemorrhagic anemia; R50.82 Postprocedural fever; I48.0 Paroxysmal atrial fibrillation; G40.909 Epilepsy, unspecified, not intractable, without status epilepticus; N18.9 Chronic kidney disease, unspecified; Z79.01 Long term (current) use of anticoagulants; Z79.82 Long term (current) use of aspirin; W01.0XXA Fall on same level from slipping, tripping and stumbling without subsequent striking against object, initial encounter; Z11.52 Encounter for screening for COVID-19
CPT/HCPCS: 73502; 80048; 80053; 81003; 81015; 85025; 85027; 85610; 86850; 86900; 86901; 87040; 87077; 87086; 87186; 87502; 87811; 93005; 96374; 96376; 97112; 97116; 97163; 97167; 97530; 97535; 99285; C1713; C1763; C1776